=== PATIENT | female | born 1975 | race Caucasian/White ===

== ENCOUNTER 2023-01-01 23:13 | Emergency (ER) | payer MEDICAID, SELFPAY ==
[2023-01-01 23:14] VITALS: BP 133/95; PULSE 102; RESP 18; TEMP 36.9; O2SAT 99; BMI 22.1
--- NOTE | 2023-01-01 23:34 | EKG12_ITS ---
Test Reason : DYSRHYTHMIA Blood Pressure : / mmHG Vent. Rate : 088 BPM Atrial Rate : 088 BPM P-R Int : 170 ms QRS Dur : 072 ms QT Int : 362 ms P-R-T Axes : 056 058 064 degrees QTc Int : 438 ms Normal sinus rhythm Normal ECG No previous ECGs available Confirmed by ORLANDO BRANTLEY, RAMOS ([id number]), assistant production editor MARY MCMULLEN ([id number]) on 01/05/2023 8:58:02 AM Referred By: LAUREL Confirmed By:RAMOS PERRY MD
--- NOTE | 2023-01-02 00:11 | ED.RN ---
Sound heard from patient room. Patient found on floor, laying on her back. No LOC. Patient assisted to feet and back into bed. Charge nurse and physician notified. Patient continued to be monitored.
--- NOTE | 2023-01-02 00:14 | ED.RN ---
Per Dr Espinal, patient denies SI and does not require a sitter.
[2023-01-02 00:26] LABS: Absolute Neutrophil Count 3.7 X10^3/uL (2.0-7.7); Basophil# 0.06 X10^3/uL; Basophil% 0.8 % (0-1); Eosinophil# 0.22 X10^3/uL; Eosinophils% 3.1 % (0-5); Hematocrit 38.7 % (37-47); Hemoglobin 12.7 g/dL (12.0-15.0); Lymphocyte % 32.2 % (19-41); Mean Corp Hgb Conc 32.8 g/dL (32-36); Mean Corpuscular Hgb 31.2 pg (27.0-32.0); Mean Corpuscular Volume 95.1 fL (81-99); Mean Platelet Vol. 8.9 fl (6.2-12.0); Monocyte# 0.76 X10^3/uL; Monocyte% 10.6 % (0-10); NRBC Flagged by Analyzer 0 % (0-5); Neutrophil % 51.9 % (47-70); POSITIVE MORPHOLOGY YES; Platelet Count 348 K/mm3 (150-450); RBC Distribution Width CV 14.4 % (11.6-14.6); RBC Distribution Width SD 49.8 fl (35.1-43.9); Red Blood Count 4.07 M/mm3 (4.2-5.4); White Blood Count 7.1 K/mm3 (4.4-11.0)
[2023-01-02 00:28] LABS: Differential Indicated SCAN CRITERIA MET
[2023-01-02 00:33] LABS: Internal QC Validated? YES +Cl - CLEAR BKGD; Pregnancy, Serum, hCG Quali. NEGATIVE Negative
[2023-01-02 00:39] LABS: AST(SGOT) 14 U/L (15-37); Alanine Aminotransfer ALT/SGPT 25 U/L (13-56); Albumin, Serum 3.7 g/dL (3.2-5.0); Alkaline Phosphatase 94 U/L (45-117); Anion Gap 5 (5-15); BUN 6 mg/dL (7-18); BUN/Creat Ratio 7.3 RATIO (10-20); Calcium,Total 8.7 mg/dL (8.5-10.1); Chloride 111 mmol/L (98-107); Creatinine, Serum 0.82 mg/dL (0.55-1.02); EST Glomerular Filtration Rate 79 mL/min (>60); Est Glom Filt Rate - Afr Amer 95 mL/min (>60); Estimated Creatinine Clearance 69.41 ml/min; Glucose 98 mg/dL (74-106); Potassium 3.8 mmol/L (3.5-5.1); Protein, Total 7.7 g/dL (6.4-8.2); Sodium Level 141 mmol/L (136-145)
[2023-01-02 00:47] LABS: Acetaminophen (Tylenol) Level < 2.0 ug/mL (10.0-30.0); Salicylate < 1.7 mg/dL (2.8-20.0)
[2023-01-02 00:55] LABS: Differential Comment SCANNED
[2023-01-02 01:01] LABS: Amphetamine Urine VISTA POSITIVE (<1000 ng/mL); Barbiturate Urine VISTA POSITIVE (< 200 ng/mL); Benzodiazepine Urine VISTA NEGATIVE (< 200 ng/mL); Cocaine Urine VISTA NEGATIVE (< 300 ng/mL); Ecstacy Urine VISTA POSITIVE (< 500 ng/mL); Methadone Urine VISTA NEGATIVE (< 300 ng/mL); PCP Urine VISTA NEGATIVE (< 25 ng/mL); THC Urine VISTA POSITIVE (< 50 ng/mL)
[2023-01-02 01:03] LABS: Vista UDS pH Range 5
--- NOTE | 2023-01-02 01:11 | ED.RN ---
PATIENTS BOYFRIEND APPROACHES NURSES STATION STATING SHE TRIED TO DIG THROUGH HER PURSE AND TAKE HER PILLS. BOYFRIEND HAS PILLS IN HAND AND GIVEN TO THIS RN. RN HAS BAGGED 4 PRESCRIPTIONS AND PLACED IN BELONGING BIGS. PATIENTS BELONGINGS OBTAIN BY THIS RN AND WILEY CELESTIN. PTS PANTS, SHIRT, PURSE AND JEWELRY OBTAINED (4 BRACELETS, 3 ANKLE BRACELETS, 3 SILVER RINGS, 2 NECKLACES). ONE SILVER RING GIVEN TO BOYFRIEND. ALL BELONGINGS IN BELONGING BAGS AND CONTAINERS.
[2023-01-02 02:53] VITALS: RESP 16
[2023-01-02] MEDS: Haloperidol Lactate 5 MG/ML Vial IM (04:47)
[2023-01-02] MEDS: Acetaminophen 500 MG Tablet 1000 MG PO (04:48)
--- NOTE | 2023-01-02 05:03 | ED.RN ---
PT EXHIBITING SHAKING ACTIVITY. STERNAL RUB PERFORMED, PT SAT UP, STOPPED SHAKING AND SAID OUCH. PT VERBALIZED SHE IS WITHDRAWING. ADVISED THAT SHE IS NOT ACTIVELY HAVING SEIZURES FROM WITHDRAW DUE TO ABILITY TO TALK AND STOP SHAKING.
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
[2023-01-02 10:51] VITALS: BP 128/77; PULSE 62; RESP 15; O2SAT 97
[2023-01-02 12:28] VITALS: BP 127/86; PULSE 79; RESP 16; TEMP 36.7; O2SAT 99
[2023-01-02 14:00] VITALS: RESP 16
[2023-01-02 15:00] VITALS: BP 140/89; PULSE 88; RESP 18; O2SAT 100
[2023-01-02] MEDS: Phenobarbital 32.4 MG Tablet PO (15:00)
--- NOTE | 2023-01-02 15:16 | ED.RN ---
1515: Discharge instructions and care plan reviewed with patient, she stated an understanding and had no further questions. Patient called Kenny to come pick her up. ETA 15 min. Patient requests to stay in room until he gets to ER.
== END 2023-01-02 15:48 | disposition home or self-care (01) ==
PROVIDERS: Emergency Provider Emergency Medicine; Visit Provider Emergency Medicine
DX: F32.A Depression, unspecified (principal); F10.129 Alcohol abuse with intoxication, unspecified; R45.851 Suicidal ideations
CPT/HCPCS: 80048; 80076; 80307; 80329; 82077; 84703; 85025; 87811; 93005; 96372; 99284; G0480

== ENCOUNTER 2023-03-01 17:44 | Emergency (ER) | payer MEDICAID, SELFPAY ==
[2023-03-01 17:45] VITALS: BP 163/120; PULSE 117; RESP 16; TEMP 36; O2SAT 97; BMI 23.0
--- NOTE | 2023-03-01 17:56 | EKG12_ITS ---
Test Reason : SEIZURE Blood Pressure : / mmHG Vent. Rate : 096 BPM Atrial Rate : 096 BPM P-R Int : 150 ms QRS Dur : 060 ms QT Int : 352 ms P-R-T Axes : 072 072 073 degrees QTc Int : 444 ms Normal sinus rhythm Septal infarct , age undetermined Abnormal ECG Confirmed by ORLANDO BRANTLEY, RAMOS ([id number]), metropolitan editor FREDDY RAMOS ([id number]) on 03/09/2023 11:32:28 AM Referred By: Confirmed By:RAMOS PERRY MD
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
[2023-03-01 20:00] VITALS: BMI 25.4
[2023-03-01 20:04] LABS: Absolute Lymphocyte Count 2.31 X10^3/uL (0.83-4.51); Absolute Neutrophil Count 5.3 X10^3/uL (2.0-7.7); Basophil# 0.04 X10^3/uL; Basophil% 0.5 % (0-1); Eosinophil# 0.16 X10^3/uL; Eosinophils% 1.8 % (0-5); Hematocrit 42.3 % (37-47); Hemoglobin 14.2 g/dL (12.0-15.0); Lymphocyte # 2.31 X10^3/ul (0.83-4.51); Lymphocyte % 26.6 % (19-41); Mean Corp Hgb Conc 33.6 g/dL (32-36); Mean Corpuscular Hgb 31.6 pg (27.0-32.0); Mean Platelet Vol. 8.9 fl (6.2-12.0); Monocyte# 0.91 X10^3/uL; Monocyte% 10.5 % (0-10); NRBC Flagged by Analyzer 0 % (0-5); Neutrophil # 5.25 X10^3/uL (2.7-7.7); Neutrophil % 60.3 % (47-70); Platelet Count 294 K/mm3 (150-450); RBC Distribution Width SD 44.6 fl (35.1-43.9); White Blood Count 8.7 K/mm3 (4.4-11.0)
[2023-03-01 20:27] VITALS: BP 164/84; PULSE 92; RESP 20; O2SAT 96
[2023-03-01 20:27] LABS: Anion Gap 6 (5-15); BUN 13 mg/dL (7-18); BUN/Creat Ratio 14.5 RATIO (10-20); Calcium,Total 9.7 mg/dL (8.5-10.1); Chloride 105 mmol/L (98-107); EST Glomerular Filtration Rate 71 mL/min (>60); Est Glom Filt Rate - Afr Amer 86 mL/min (>60); Estimated Creatinine Clearance 63.24 ml/min; Glucose 95 mg/dL (74-106); Potassium 3.6 mmol/L (3.5-5.1); Sodium Level 138 mmol/L (136-145); Troponin-I HS 4 pg/mL (3.0-54.0)
[2023-03-01] MEDS: Ondansetron 4 MG/2 ML Vial IV (20:45)
[2023-03-01] MEDS: Phenobarbital 32.4 MG Tablet 97.2 MG PO (20:45)
[2023-03-01] MEDS: LORazepam 2 MG/ML Syringe IV (20:45)
--- NOTE | 2023-03-01 21:00 | RAD_ITS ---
INDICATION: chest pain EXAMINATION/TECHNIQUE: X-RAY - XR Chest 1 View COMPARISON: None. FINDINGS: LINES/DEVICES: None. LUNGS: Paucity of lung markings within bilateral upper lungs compatible with COPD. No pulmonary edema or focal airspace consolidation. No sizable pleural effusion. No pneumothorax detected. MEDIASTINUM AND CARDIOVASCULAR STRUCTURES: Heart size within normal limits. Mediastinal contours unremarkable. BONES AND SOFT TISSUES: No acute findings. Left axillary metallic clips. RAD/Chest 1 View (Portable) IMPRESSION: COPD Electronically Signed: Kevan Dubois MD at 21:37 EDT ,
[2023-03-01 21:50] VITALS: BP 144/96; PULSE 88; RESP 20
--- NOTE | 2023-03-01 21:50 | ED.RN ---
PATIENTS ASKED IF SHE WOULD BE INTERESTED IN DETOX FOR ALCOHOL. PT STATES SHE DOES NOT FEEL LIKE THESE SYMPTOMS ARE FROM ALCOHOL. MORE ANXIETY. PT STATES SHE DOES NOT WANT DETOX AT THIS TIME. RN INFORMED HER IS SHE CHANGES HER MIND TO LET A NURSE KNOW OR SHE CAN RETURN TO ED FOR EVALUATION
--- NOTE | 2023-03-01 22:06 | CM.ED ---
Social Work SW introduced self and role to patient. Pt had requested to speak with social work to receive resources. Pt reports having no PCP, difficulty with alcohol, anxiety, is caring for her mother and is grieving. Pt reports going to [facility] but feels she needs more intensive mental health counseling. SW provided patient with [facility] info, IOP info, and [facility] list. SW explained resources and patient reports she plans to call to get in for counseling. [facility] TECHNICIAN, INDUSTRIAL METHODS CONSULTANT
== END 2023-03-01 23:19 | disposition home or self-care (01) ==
PROVIDERS: Emergency Provider Emergency Medicine; Visit Provider Emergency Medicine
DX: F10.239 Alcohol dependence with withdrawal, unspecified (principal); R07.9 Chest pain, unspecified; I10 Essential (primary) hypertension; F41.9 Anxiety disorder, unspecified
CPT/HCPCS: 71045; 80048; 84484; 85025; 93005; 96365; 96375; 99285; A4216; J2405; J3490

== ENCOUNTER 2023-03-05 16:45 | Inpatient (IN) | payer MEDICAID, SELFPAY ==
[2023-03-05 16:46] VITALS: BP 159/103; PULSE 106; RESP 20; TEMP 36.6; O2SAT 99; BMI 25.4
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
[2023-03-05 17:10] LABS: Absolute Lymphocyte Count 1.65 X10^3/uL (0.83-4.51); Absolute Neutrophil Count 4.9 X10^3/uL (2.0-7.7); Basophil# 0.07 X10^3/uL; Basophil% 0.9 % (0-1); Eosinophils% 1.3 % (0-5); Hematocrit 43.3 % (37-47); Hemoglobin 14.7 g/dL (12.0-15.0); Lymphocyte # 1.65 X10^3/ul (0.83-4.51); Lymphocyte % 22.1 % (19-41); Mean Corp Hgb Conc 33.9 g/dL (32-36); Mean Corpuscular Hgb 31.5 pg (27.0-32.0); Mean Corpuscular Volume 92.7 fL (81-99); Mean Platelet Vol. 9.1 fl (6.2-12.0); Monocyte# 0.74 X10^3/uL; Monocyte% 9.9 % (0-10); NRBC Flagged by Analyzer 0 % (0-5); Neutrophil % 65.7 % (47-70); Platelet Count 347 K/mm3 (150-450); RBC Distribution Width CV 12.8 % (11.6-14.6); Red Blood Count 4.67 M/mm3 (4.2-5.4); White Blood Count 7.5 K/mm3 (4.4-11.0)
[2023-03-05] MEDS: LORazepam 2 MG/ML Syringe 1 MG IV (17:21)
[2023-03-05 17:22] LABS: Internal QC Validated? YES +Cl - CLEAR BKGD; Pregnancy, Serum, hCG Quali. NEGATIVE Negative; Record Kit Lot#, Serum Preg. 667200
[2023-03-05 17:27] LABS: Alcohol, Blood (Medical)-Serum < 3.0 mg/dL
[2023-03-05 17:31] LABS: AST(SGOT) 22 U/L (15-37); Alanine Aminotransfer ALT/SGPT 28 U/L (13-56); Albumin, Serum 4.3 g/dL (3.2-5.0); Alkaline Phosphatase 109 U/L (45-117); Anion Gap 7 (5-15); BUN 5 mg/dL (7-18); BUN/Creat Ratio 5.7 RATIO (10-20); Calcium,Total 9.4 mg/dL (8.5-10.1); Chloride 106 mmol/L (98-107); Creatinine, Serum 0.88 mg/dL (0.55-1.02); EST Glomerular Filtration Rate 73 mL/min (>60); Est Glom Filt Rate - Afr Amer 88 mL/min (>60); Estimated Creatinine Clearance 64.67 ml/min; Globulin 4.3 g/dL (2.2-4.2); Glucose 101 mg/dL (74-106); Potassium 3.8 mmol/L (3.5-5.1); Protein, Total 8.6 g/dL (6.4-8.2); Sodium Level 138 mmol/L (136-145)
--- NOTE | 2023-03-05 17:32 | ED.RN ---
pt. gives permission to talk to pt. mother. mother very tearful, worried for daughter,
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
[2023-03-05 17:54] VITALS: BP 154/78; PULSE 104; RESP 14; O2SAT 98
[2023-03-05 17:58] VITALS: BP 158/98; PULSE 94; RESP 14; TEMP 36.4; O2SAT 98
[2023-03-05 18:07] VITALS: BP 164/74; PULSE 64; RESP 14; O2SAT 98
--- NOTE | 2023-03-05 18:13 | ED.RN ---
ramp contract signed.
[2023-03-05 18:22] VITALS: BMI 24.1
[2023-03-05 18:29] VITALS: BP 149/90; PULSE 89; RESP 17; TEMP 36.7; O2SAT 100
[2023-03-05] MEDS: Phenobarbital 32.4 MG Tablet PO ×2 (19:05→23:47)
[2023-03-05] MEDS: hydrOXYzine PAM 25 MG Capsule 50 MG PO (21:37)
[2023-03-05] MEDS: Acetaminophen 325 MG Tablet 650 MG PO (21:37)
[2023-03-05] MEDS: Dicyclomine 10 MG Capsule 20 MG PO (21:37)
[2023-03-05 23:43] VITALS: BP 127/88; PULSE 85; RESP 18; TEMP 36; O2SAT 96
[2023-03-05] MEDS: traZODone 100 MG Tablet PO (23:47)
[2023-03-05] MEDS: Gabapentin 300 MG Capsule PO (23:47)
[2023-03-06 00:23] LABS: Mucous, Urine 0 SEEN /hpf (<or=2+); Red Blood Cells-Urine 0 SEEN /hpf (0-5)
[2023-03-06 00:25] LABS: Color, Urine Yellow (Yellow); Glucose, Dipstick Normal (Normal); Ketone-Dipstick 15 mg/dl (Negative); Leukocyte Esterase-Dipstick 500 /ul (Negative); Nitrite-Dipstick Negative (Negative); Occult Blood-Urine 25 /ul (Negative); Protein-Dipstick 30 mg/dl (Negative); Specific Gravity, Urine 1.025 (1.002-1.030); Urine Clarity Cloudy (Clear); Urine Urobilinogen 1 mg/dl (Normal)
[2023-03-06 00:31] LABS: Urine Bilirubin Dipstick 1 mg/dL (Negative)
[2023-03-06 00:55] LABS: Amphetamine Urine VISTA POSITIVE (<1000 ng/mL); Barbiturate Urine VISTA POSITIVE (< 200 ng/mL); Benzodiazepine Urine VISTA POSITIVE (< 200 ng/mL); Cocaine Urine VISTA NEGATIVE (< 300 ng/mL); Ecstacy Urine VISTA NEGATIVE (< 500 ng/mL); Methadone Urine VISTA NEGATIVE (< 300 ng/mL); PCP Urine VISTA NEGATIVE (< 25 ng/mL); THC Urine VISTA POSITIVE (< 50 ng/mL); Vista UDS pH Range 4
[2023-03-06 01:01] LABS: Squamous Epithelial Cells - UA 10-25 SEEN /hpf (5-10); White Blood Cells 25-50 SEEN /hpf (0-5)
[2023-03-06 01:05] LABS: Bacteria 3+ /hpf (None Seen)
[2023-03-06] MEDS: Phenobarbital 32.4 MG Tablet PO ×6 (03:37→21:51)
[2023-03-06] MEDS: hydrOXYzine PAM 25 MG Capsule 50 MG PO ×2 (03:37→21:51)
[2023-03-06 03:39] VITALS: BP 108/73; PULSE 69; RESP 18; TEMP 36.1; O2SAT 96
[2023-03-06] MEDS: Folic Acid 1 MG Tablet PO (08:35)
[2023-03-06] MEDS: Thiamine Hydrochloride 100 MG Tablet PO (08:35)
[2023-03-06] MEDS: Smz/Tmp Ds Tablet 1 TABLET PO (08:35)
[2023-03-06] MEDS: Ensure Plus High Protein 120 ML LIQUID PO ×2 (08:39→14:38)
[2023-03-06 08:40] VITALS: BP 100/61; PULSE 69; RESP 16; TEMP 36.6; O2SAT 98
--- NOTE | 2023-03-06 08:52 | PCM.PN.HOSP ---
Subjective Subjective Resting, no issues overnight. CIWA score for Objective Data Objective Data Vital Signs: Vital Signs Temp Pulse Resp BP Pulse Ox O2 Del Method 97.9 F 69 16 100/61 98 Room Air 03/06/23 08:40 03/06/23 08:40 03/06/23 08:40 03/06/23 08:40 03/06/23 08:40 03/06/23 08:40 Oxygen Delivery Method Room Air Weight: 136 lb 7.458 oz Body Mass Index (BMI) 24.1 Lab / Micro Data 03/05/23 16:53 03/05/23 16:53 Labs: Laboratory Results - last 24 hr 03/05/23 16:53: WBC 7.5, RBC 4.67, Hgb 14.7, Hct 43.3, MCV 92.7, MCH 31.5, MCHC 33.9, RDW Std Deviation 44.0 H, RDW Coeff of Dayo 12.8, Plt Count 347, MPV 9.1, Immature Gran % (Auto) 0.100, Neut % (Auto) 65.7, Lymph % (Auto) 22.1, [place] % (Auto) 9.9, Eos % (Auto) 1.3, Baso % (Auto) 0.9, Absolute Neuts (auto) 4.9, Absolute Lymphs (auto) 1.65, Nucleated RBC % 0, Sodium 138, Potassium 3.8, Chloride 106, Carbon Dioxide 25.0, Anion Gap 7, BUN 5 L, Creatinine 0.88, Estim Creat Clear Calc 64.67, Est GFR (MDRD) Af Amer 88, Est GFR (MDRD) Non-Af 73, BUN/Creatinine Ratio 5.7 L, Glucose 101, Calcium 9.4, Total Bilirubin 0.60, AST 22, ALT 28, Alkaline Phosphatase 109, Total Protein 8.6 H, Albumin 4.3, Globulin 4.3 H, Albumin/Globulin Ratio 1.0, Serum , Qual NEGATIVE, Ethyl Alcohol < 3.0 03/05/23 23:50: Urine Color Yellow, Urine Clarity Cloudy, Urine pH 5.0, Ur Specific [place] 1.025, Urine Protein 30 H, Urine Glucose (UA) Normal, Urine Ketones 15 H, Urine Occult Blood 25 H, Urine Nitrite Negative, Urine Bilirubin 1 H, Urine Urobilinogen 1 H, Ur Leukocyte Esterase 500 H, Urine RBC 0 SEEN, Urine WBC 25-50 SEEN, Ur Squamous Epith Cells 10-25 SEEN, Urine Bacteria 3+, Urine Mucus 0 SEEN, Urine Opiates Screen NEGATIVE, Urine Methadone Screen NEGATIVE, Ur Barbiturates Screen POSITIVE H, Ur Phencyclidine Scrn NEGATIVE, Ur Amphetamines Screen POSITIVE H, MDMA (Ecstasy) Screen NEGATIVE, U Benzodiazepines Scrn POSITIVE H, Urine Cocaine Screen NEGATIVE, U Cannabinoids Screen POSITIVE H, Ur Drug Screen Comment Physical Exam Narrative General: Alert, Oriented x3, Cooperative, No apparent distress HEENT: Atraumatic, PERRLA, EOMI, Normocephalic Oral: Moist Mucosa Neck: Supple, No JVD Lungs: Clear to auscultation, Normal air movement, No rhonchi, No wheeze, No rales Cardiovascular: Regular rate, Regular Rhythm, Normal S1, Normal S2, No murmurs Abdomen: Soft, Non Tender, Non-Distended, No Hepato-splenomegaly Extremities: No edema, Capillary Refill Less than 3 Seconds Skin: No rashes, No breakdown Musculoskeletal: No Tenderness to Palpation of Joints or Extremities Neurological: Cranial nerves II-XII grossly intact, Motor Exam 5/5 strength throughout, Sensory exam intact to light touch and pain Psych/Mental Status: Normal Affect, Appropriate Assessment & Plan Assessment/Plan (1) Anxiety: (2) Alcohol withdrawal: PLAN: Plan 1. Acute alcohol withdrawal with seizure/anxiety/depression ? Continue with the alcohol withdrawal protocol including phenobarb taper ? She had to be given Ativan in the ER for seizure, continue with seizure precautions we will continue to monitor ? We will have her follow-up with [facility] as an outpatient for behavioral and mental health ? Urine drug screen positive for barbiturates, amphetamines, benzos, cannabis. She is on clonazepam as well as Wellbutrin at home DVT: Ambulation Charges/Coding Visit Charges Inpatient E&M: 76732 Subs Hosp L2
[2023-03-06] MEDS: Loperamide 2 MG Capsule PO (11:52)
--- NOTE | 2023-03-06 12:15 | CASEMGMT ---
Social Work PCU Spoke with Dr. Hicks and patient is here for detox. Provider would like [facility] - Addiction therapist to follow. Called Leann Addiction Therapist at [facility] to notify of referral. Leann will see patient tomorrow morning 03.07.23 for assessment/updates regarding substance use, detox, and aftercare needs. PLAN: [facility]. -ROGERIO Rm
[2023-03-06 14:00] VITALS: BP 123/74; PULSE 73; RESP 16; TEMP 36.6; O2SAT 98
--- NOTE | 2023-03-06 15:23 | CHAPLAIN ---
Type of Pastoral Visit _x__ Initial Visit ___ Follow-up Visit ___ On-call Visit ___ General Patient Visit ___ Spiritual Assessment ___ Family Conference ___ Bereavement ___ Rapid Response ___ Code Blue ___ Other (describe below) Pastoral Care Referral From _x__ Patient ___ Family ___ Nurse ___ Physician ___ Rehabilitation Counsellor ___ Head Of Sales Promotion ___ Other (describe below) Sacrament/Intervention _x__ Active listening ___ Anointing ___ Buddhist ___ Bereavement ___ Communion ___ Joseline exploration ___ ___ Life review _x__ Prayer ___ Reconciliation ___ Sacrament of Sick ___ Supportive presence ___ Wedding ___ Other (describe below) Pastoral Comments patient is resting and opens her eyes when this library information technician entered the room; pt acknowledges need for support but states that the meds are making her very sleepy; pt says, can you say a prayer today and come back to talk tomorrow?; agreement to do as requested
--- NOTE | 2023-03-06 18:33 | NURSING ---
PT MOM, VALERIE GARCIA, UPDATED ON PT STATUS PER PT OK. PT MOM REQUESTING TO SPEAK WITH ALIYA, ADDICTION THERAPIST ABOUT PT'S OPTIONS POST MEDICAL DETOX. PT MOM REQUESTING THAT PT GO TO 60 DAY TREATMENT. PT MOM STATES SHE'S AFRAID OF PT WHEN SHE DRINKS AND MOM CANNOT ALLOW PT BACK HOME. MOM- [phone]
[2023-03-06] MEDS: traZODone 100 MG Tablet PO (21:51)
[2023-03-06 22:03] VITALS: BP 98/62; PULSE 69; RESP 16; TEMP 36.6; O2SAT 100
[2023-03-07] MEDS: hydrOXYzine PAM 25 MG Capsule 50 MG PO ×2 (03:52→23:24)
[2023-03-07] MEDS: Phenobarbital 32.4 MG Tablet PO ×6 (03:52→23:24)
[2023-03-07 03:54] VITALS: BP 96/60; PULSE 78; RESP 16; TEMP 36.7; O2SAT 100
[2023-03-07 08:27] VITALS: BP 105/70; PULSE 75; RESP 16; TEMP 36.6; O2SAT 99
[2023-03-07] MEDS: Thiamine Hydrochloride 100 MG Tablet PO (08:28)
[2023-03-07] MEDS: Folic Acid 1 MG Tablet PO (08:28)
[2023-03-07] MEDS: Smz/Tmp Ds Tablet 1 TABLET PO (08:28)
--- NOTE | 2023-03-07 08:52 | PCM.PN.HOSP ---
Subjective Subjective Doing well, no issues overnight. CIWA score 1 today Objective Data Objective Data Vital Signs: Vital Signs Temp Pulse Resp BP Pulse Ox O2 Del Method 97.9 F 75 16 105/70 99 Room Air 03/07/23 08:27 03/07/23 08:27 03/07/23 08:27 03/07/23 08:27 03/07/23 08:27 03/07/23 08:27 Oxygen Delivery Method Room Air Weight: 136 lb 7.458 oz Body Mass Index (BMI) 24.1 Lab / Micro Data 03/05/23 16:53 03/05/23 16:53 Physical Exam Narrative General: Alert, Oriented x3, Cooperative, No apparent distress HEENT: Atraumatic, PERRLA, EOMI, Normocephalic Oral: Moist Mucosa Neck: Supple, No JVD Lungs: Clear to auscultation, Normal air movement, No rhonchi, No wheeze, No rales Cardiovascular: Regular rate, Regular Rhythm, Normal S1, Normal S2, No murmurs Abdomen: Soft, Non Tender, Non-Distended, No Hepato-splenomegaly Extremities: No edema, Capillary Refill Less than 3 Seconds Skin: No rashes, No breakdown Musculoskeletal: No Tenderness to Palpation of Joints or Extremities Neurological: Cranial nerves II-XII grossly intact, Motor Exam 5/5 strength throughout, Sensory exam intact to light touch and pain Psych/Mental Status: Normal Affect, Appropriate Assessment & Plan Assessment/Plan (1) Anxiety: (2) Alcohol withdrawal: PLAN: Plan 1. Acute alcohol withdrawal with seizure/anxiety/depression ? Continue with the alcohol withdrawal protocol including phenobarb taper ? She had to be given Ativan in the ER for seizure, continue with seizure precautions we will continue to monitor ? We will have her follow-up with [facility] as an outpatient for behavioral and mental health ? Urine drug screen positive for barbiturates, amphetamines, benzos, cannabis. She is on clonazepam as well as Wellbutrin at home DVT: Ambulation Charges/Coding Visit Charges Inpatient E&M: 06622 Subs Hosp L2
--- NOTE | 2023-03-07 11:39 | ADDICTION ---
Addendum entered by Leann Duque 03/09/23 14:20: Pt declined referral. Reported that she was there previously and they did not give her what she needed. A referral was placed for [facility], Pt refused to speak with the membership coordinator. A referral was placed for [facility] in [facility]. Pt reported that it was in the [facility]. Pt reports that she will just follow up with [facility] at [facility]. Original Note: This scenario writer met with PT to conduct ASAM, MSE, AUDIT, DUDIT assessments and to plan for d/c. PT A+Ox4 and participated actively. All assessments completed and placed in PT's chart. PT plans to f/u with in [facility] for follow-up in patient treatment services on Sunday if approved. [facility] will transport to treatment.
[2023-03-07 14:48] VITALS: BP 134/80; PULSE 69; RESP 16; TEMP 36.8; O2SAT 99
[2023-03-07 23:08] VITALS: BP 120/71; PULSE 72; RESP 18; TEMP 36.6; O2SAT 98
[2023-03-07] MEDS: 0.9% Saline Lock 10 ML Syringe IV ×2 (23:21→23:37)
[2023-03-07] MEDS: traZODone 100 MG Tablet PO (23:24)
--- NOTE | 2023-03-07 23:29 | NURSING ---
Nina from [facility] called and wanted us to community to the patient that the facility was 3 [place] 15 min away from [place]. We are to call her back and let he know if the patient still wants to come to the facility before they set up transportation. Karoline JAMA checked with the patient and she wants to talk with Leann from [facility] tomorrow. We are to call Nina at to let her know the patient decision.
[2023-03-08 03:27] VITALS: BP 102/63; PULSE 75; RESP 18; TEMP 36.6; O2SAT 95
[2023-03-08] MEDS: Phenobarbital 32.4 MG Tablet PO ×4 (03:31→21:17)
[2023-03-08 09:35] VITALS: BP 102/59; PULSE 82; RESP 16; TEMP 36.6; O2SAT 98
[2023-03-08] MEDS: Smz/Tmp Ds Tablet 1 TABLET PO (09:38)
[2023-03-08] MEDS: Folic Acid 1 MG Tablet PO (09:38)
[2023-03-08] MEDS: Thiamine Hydrochloride 100 MG Tablet PO (09:38)
--- NOTE | 2023-03-08 11:19 | PCM.PN.HOSP ---
Subjective Subjective Doing well, no issues overnight. CIWA score of 1 Objective Data Objective Data Vital Signs: Vital Signs Temp Pulse Resp BP Pulse Ox O2 Del Method 97.9 F 82 16 102/59 L 98 Room Air 03/08/23 09:35 03/08/23 09:35 03/08/23 09:35 03/08/23 09:35 03/08/23 09:35 03/08/23 10:00 Oxygen Delivery Method Room Air Weight: 136 lb 7.458 oz Body Mass Index (BMI) 24.1 Intake & Output: Intake and Output for Last 24 Hours 03/07/23 03/08/23 03/09/23 03:59 03:59 03:59 Intake Total 500 / 500 300 / 300 Balance 500 / 500 300 / 300 Lab / Micro Data 03/05/23 16:53 03/05/23 16:53 Physical Exam Narrative General: Alert, Oriented x3, Cooperative, No apparent distress HEENT: Atraumatic, PERRLA, EOMI, Normocephalic Oral: Moist Mucosa Neck: Supple, No JVD Lungs: Clear to auscultation, Normal air movement, No rhonchi, No wheeze, No rales Cardiovascular: Regular rate, Regular Rhythm, Normal S1, Normal S2, No murmurs Abdomen: Soft, Non Tender, Non-Distended, No Hepato-splenomegaly Extremities: No edema, Capillary Refill Less than 3 Seconds Skin: No rashes, No breakdown Musculoskeletal: No Tenderness to Palpation of Joints or Extremities Neurological: Cranial nerves II-XII grossly intact, Motor Exam 5/5 strength throughout, Sensory exam intact to light touch and pain Psych/Mental Status: Normal Affect, Appropriate Assessment & Plan Assessment/Plan (1) Anxiety: (2) Alcohol withdrawal: PLAN: Plan 1. Acute alcohol withdrawal with seizure/anxiety/depression ? Continue with the alcohol withdrawal protocol including phenobarb taper ? She had to be given Ativan in the ER for seizure, continue with seizure precautions we will continue to monitor ? We will have her follow-up with [facility] as an outpatient for behavioral and mental health, she is refusing inpatient placement so will be discharged in the morning ? Urine drug screen positive for barbiturates, amphetamines, benzos, cannabis. She is on clonazepam as well as Wellbutrin at home DVT: Ambulation
--- NOTE | 2023-03-08 12:05 | CHAPLAIN ---
Type of Pastoral Visit ___ Initial Visit ___ Follow-up Visit ___ On-call Visit ___ General Patient Visit ___ Spiritual Assessment ___ Family Conference ___ Bereavement ___ Rapid Response ___ Code Blue ___ Other (describe below) Pastoral Care Referral From ___ Patient ___ Family ___ Nurse ___ Physician ___ Patrol Deputy Sheriff ___ Cardiac Rehab Nurse ___ Other (describe below) Sacrament/Intervention ___ Active listening ___ Anointing ___ Adventist ___ Bereavement ___ Communion ___ Joseline exploration ___ ___ Life review ___ Prayer ___ Reconciliation ___ Sacrament of Sick ___ Supportive presence ___ Wedding ___ Other (describe below) Pastoral Comments second day in a row that patient has been soundly sleeping when visit is attempted
[2023-03-08 15:00] VITALS: BP 110/64; PULSE 88; RESP 16; TEMP 36.6; O2SAT 99
[2023-03-08] MEDS: traZODone 100 MG Tablet PO (21:17)
[2023-03-08] MEDS: Dicyclomine 10 MG Capsule 20 MG PO (21:18)
[2023-03-08] MEDS: Acetaminophen 325 MG Tablet 650 MG PO (21:18)
[2023-03-08 22:00] VITALS: BP 110/71; PULSE 71; RESP 16; TEMP 36.6; O2SAT 99
[2023-03-09 02:20] VITALS: BP 112/70; PULSE 70; RESP 16; TEMP 36.3; O2SAT 100
[2023-03-09] MEDS: Phenobarbital 32.4 MG Tablet PO ×2 (03:48→08:06)
[2023-03-09 04:00] VITALS: BP 108/56; PULSE 60; RESP 16; TEMP 36.4; O2SAT 98
[2023-03-09] MEDS: Thiamine Hydrochloride 100 MG Tablet PO (08:06)
[2023-03-09] MEDS: Folic Acid 1 MG Tablet PO (08:06)
[2023-03-09 09:20] VITALS: BP 107/54; PULSE 71; RESP 18; TEMP 37.3; O2SAT 98
--- NOTE | 2023-03-09 11:47 | DCINST_ITS ---
Discharge Instructions Diet Discharge Diet: Low fat / Low cholesterol Activity Discharge Activity: Return to Normal Activity Weight Bearing Status: Weight bearing as tolerated Dressing / Incision Call your doctor if you observe: Fever of 101 or Higher, Shortness of breath, Dizziness, Swelling in the ankles, Chest pain and Increased palpitations (irregular heartbeat) Follow Up Care Test Results: Test results from this visit will be discussed in further detail at your follow- up appointment, if applicable. Discharge Plan Admission Admit Date/Time: 03/05/23 17:54 Primary Reason for Your Visit: acute alcohol withdrawal Attending Provider: Jami Trevino Primary Care Provider: Melisa Hernadez,No Primary Consulting Providers: Jami Trevino; Wayne Hicks Instructions Patient Instructions: Alcohol Withdrawal: What to Expect, ED Withdrawal Alcohol Discharge Orders/Prescriptions Prescriptions: Continued bupropion HCl 300 mg tablet extended release 24 hr 300 mg PO DAILY Patient Comments: TAKE 1 TABLET BY MOUTH EVERY MORNING FOR 30 DAYS clonazepam 1 mg tablet 1 mg PO BID PRN hydroxyzine HCl 25 mg tablet 25 mg PO TID PRN (Reason: anxiety) Qty: 21 0RF ondansetron 4 mg tablet,disintegrating 4 mg PO Q8H PRN (Reason: nausea and vomiting) 3 Days Qty: 9 0RF Referrals / Follow Up: Care Physician,No Primary [Primary Care Provider] - Disposition Disposition (needs filled in before D/C Order can be placed): Home, Self Care
--- NOTE | 2023-03-09 11:47 | PCM.DC.SUM ---
Providers Date of Admission: 03/05/23 Date of Discharge: 03/09/23 Primary Care Physician: No Primary Care Phys Reason For Visit: ACUTE ALCOHOL WITHDRAWL WITH SEIZURE Diagnosis Discharge Diagnosis (1) Anxiety: Status: Acute Code(s): F41.9 - Anxiety disorder, unspecified (2) Alcohol withdrawal: Status: Acute Code(s): F10.939 - Alcohol use, unspecified with withdrawal, unspecified Plan #Acute alcohol withdrawal with seizure Admit to PCU on account of seizure Serum alcohol level is less than 3. Urine tox is pending. Did have 1 witnessed seizure. Has drank a case of beer over the past few days and at least a bottle of wine. Started on alcohol withdrawal protocol with phenobarbital. Ativan as needed for seizure. Seizure precautions. Thiamine, folic acid and Multivite's. Adjunctive meds for symptomatic relief. #Anxiety and depression: Currently not on any meds. Follow-up with psychiatrist on outpatient basis. #DVT prophylaxis: Low risk. Encourage ambulation. Medications at Discharge Home Medications hydroxyzine HCl 25 mg tablet 25 mg PO TID PRN anxiety #21 tabs 03/01/23 ondansetron 4 mg disintegrating tablet 4 mg PO Q8H PRN nausea and vomiting 3 days #9 tabs 03/01/23 bupropion HCl 300 mg 24 hr tablet, extended release 300 mg PO DAILY depression 03/05/23 clonazepam 1 mg tablet 1 mg PO BID PRN anxiety and chronic insomnia 03/05/23 Hospital Course Operations None Procedures None Summary of Care Provided Minutes Spent on Discharge: 45 Hospital Course: KELI HEADLEY, is a 47 F with a PMH as outlined including alcohol use disorder, depression and anxiety who presents via the ED on 03/05/2023 with a complaint of seizure which she attributes to acute alcohol withdrawal. SHe was seen a few days ago for acute alcohol withdrawal as well as chest pain, and and requested for intensive outpatient treatment. However upon leaving the ED then, she went home and started binge drinking again. She does drink over a case of beer and that. And is also drank at least a bottle of wine. Her last drink was 8 AM on the morning of admission. She had a seizure which she attributed to alcohol withdrawal. Seizure was unwitnessed; Patient also stated that she had had additional stresses in her life because one of her best friends had and she was going through a divorce as well, and this had made her even more depressed and anxious, causing her to drink more alcohol. She did go through a detox program in [place] some months ago, but says she started drinking soon after that. Vitals in the ED were blood pressure 159/103, pulse rate of 106 and respiratory rate of 20. Temperature was 97.8 Fahrenheit and she was saturating at 99% on room air. CBC was unremarkable and BMP was also largely unremarkable. Serum alcohol level was less than 3. Urine tox was pending. She was admitted to be managed for acute alcohol withdrawal with associated seizure. She was started on alcohol withdrawal protocol with phenobarbital. She tolerated a 4 day detox process. She was initially willing to go to inpatient detox facility, but subsequently changed her mind and chose to go home. She was discharged home on 03/09/2023. She is to follow up with her PCP within 1-2 weeks. Patient seen and examined prior to discharge. She had no active complaints and had an uneventful night. Review of systems was otherwise negative. Labs and vitals reviewed. Home meds reviewed and reconciled. Physical Exam Const alert and oriented x3 Constitutional Narrative: very anxious General Appearance: cooperative and comfortable HEENT normocephalic, head/scalp atraumatic and hearing grossly normal bilaterally Mouth: oral and palatal mucosa normal Eyes PERRL, EOMs intact bilaterally and conjunctivae normal Neck no lymphadenopathy, supple and no JVD Lymph Lymphatic: no lymphadenopathy noted and no lymphedema noted Resp normal respiratory effort, normal air movement and clear to auscultation bilaterally Cardio regular rate, regular rhythm, S1 normal heart sound, S2 normal heart sound and no murmurs GI normal to inspection, nondistended, normoactive bowel sounds, soft to palpation, non-tender and non-distended Extremity normal to inspection, full ROM, normal capillary refill, no clubbing, cyanosis or edema and no calf tenderness General Extremity: no tenderness to palpation of joints or extremities Skin no rashes or lesions noted General Skin Exam: no breakdown Neuro oriented x3, CN's II-XII intact bilaterally, no focal motor deficits and no sensory deficits noted Sensorium / Orientation: awake and alert Motor Exam: strength 5/5 throughout and general weakness Psych thought process normal, cooperative and affect normal Appearance: appropriate Weight / BMI Weight Weight: 136 lb 7.458 oz Body Mass Index (BMI) 24.1 ABG / Lab / Microbiology Data 03/05/23 16:53 03/05/23 16:53 D/C Instructions Discharge Diet: Low fat / Low cholesterol Discharge Activity: Return to Normal Activity Weight Bearing Status: Weight bearing as tolerated Call your doctor if you observe: Fever of 101 or Higher, Shortness of breath, Dizziness, Swelling in the ankles, Chest pain and Increased palpitations (irregular heartbeat) Meaningful Use Info Meaningful Use Diagnoses (Choose all that apply): None applicable Discharge Plan Admission Admit Date/Time: 03/05/23 17:54 Primary Reason for Your Visit: acute alcohol withdrawal Attending Provider: Jami Trevino Primary Care Provider: Care Physician,No Primary Consulting Providers: Jami Trevino; Wayne Hicks Instructions Patient Instructions: Alcohol Withdrawal: What to Expect, ED Withdrawal Alcohol Discharge Orders/Prescriptions Prescriptions: Continued bupropion HCl 300 mg tablet extended release 24 hr 300 mg PO DAILY Patient Comments: TAKE 1 TABLET BY MOUTH EVERY MORNING FOR 30 DAYS clonazepam 1 mg tablet 1 mg PO BID PRN hydroxyzine HCl 25 mg tablet 25 mg PO TID PRN (Reason: anxiety) Qty: 21 0RF ondansetron 4 mg tablet,disintegrating 4 mg PO Q8H PRN (Reason: nausea and vomiting) 3 Days Qty: 9 0RF Referrals / Follow Up: Care Physician,No Primary [Primary Care Provider] - Disposition Disposition (needs filled in before D/C Order can be placed): Home, Self Care Charges/Coding Visit Charges Inpatient E&M: 52289 Disch Hosp >30min
[2023-03-09 14:00] VITALS: BP 137/62; PULSE 69; RESP 18; TEMP 36.4; O2SAT 98
--- NOTE | 2023-03-09 15:50 | CHAPLAIN ---
Type of Pastoral Visit ___ Initial Visit _x__ Follow-up Visit ___ On-call Visit ___ General Patient Visit ___ Spiritual Assessment ___ Family Conference ___ Bereavement ___ Rapid Response ___ Code Blue ___ Other (describe below) Pastoral Care Referral From _x__ Patient ___ Family ___ Nurse ___ Physician ___ Law Instructor ___ Batch Tank Controller ___ Other (describe below) Sacrament/Intervention ___ Active listening ___ Anointing ___ Yarsanism ___ Bereavement ___ Communion ___ Joseline exploration ___ ___ Life review _x__ Prayer ___ Reconciliation ___ Sacrament of Sick _x__ Supportive presence ___ Wedding ___ Other (describe below) Pastoral Comments daily attempts made to visit with this patient; today the patient was quietly resting but responded to call of her name by this biomedical engineering technologist; reintroduced self and role to patient; pt states that she has had such a difficult time being awake and alert while in the hospital; pt does state that prayer would be appreciated; words of encouragement and hope are shared with the pt along with affirmation of support for her improved health; pt expresses thanks for the support and presence
== END 2023-03-09 14:58 | disposition home or self-care (01) | DRG 775 ==
LOC: ED 17:40 → PCU 18:12
PROVIDERS: Admitting Provider Student in an Organized Health Care Education/Training Program; Emergency Provider Emergency Medicine; Visit Provider Student in an Organized Health Care Education/Training Program
DX: F10.239 Alcohol dependence with withdrawal, unspecified (principal); F32.A Depression, unspecified; G40.89 Other seizures; F41.9 Anxiety disorder, unspecified; Y90.0 Blood alcohol level of less than 20 mg/100 ml; Z63.5 Disruption of family by separation and divorce
CPT/HCPCS: 80053; 80307; 81001; 82077; 84703; 85025; 97802; 99285; A4216

== ENCOUNTER 2023-04-20 04:03 | Emergency (ER) | payer MEDICAID, SELFPAY ==
[2023-04-20 04:04] VITALS: BP 142/62; PULSE 117; RESP 16; TEMP 36.6; O2SAT 98; BMI 26.3
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
[2023-04-20] MEDS: 0.9% Normal Saline (1000mL) 1,000 ML 1000 ML IV (04:22)
[2023-04-20] MEDS: Ondansetron 4 MG/2 ML Vial IV (04:22)
[2023-04-20] MEDS: LORazepam 2 MG/ML Syringe 0.5 MG IV (04:22)
[2023-04-20 04:33] LABS: Absolute Lymphocyte Count 2.04 X10^3/uL (0.83-4.51); Absolute Neutrophil Count 6.2 X10^3/uL (2.0-7.7); Basophil# 0.08 X10^3/uL; Basophil% 0.9 % (0-1); Eosinophil# 0.09 X10^3/uL; Hematocrit 38.6 % (37-47); Hemoglobin 13.2 g/dL (12.0-15.0); Lymphocyte # 2.04 X10^3/ul (0.83-4.51); Mean Corp Hgb Conc 34.2 g/dL (32-36); Mean Corpuscular Volume 90.6 fL (81-99); Mean Platelet Vol. 8.1 fl (6.2-12.0); Monocyte# 0.87 X10^3/uL; Monocyte% 9.4 % (0-10); NRBC Flagged by Analyzer 0 % (0-5); Neutrophil # 6.15 X10^3/uL (2.7-7.7); Neutrophil % 66.4 % (47-70); Platelet Count 347 K/mm3 (150-450); RBC Distribution Width CV 12.7 % (11.6-14.6); RBC Distribution Width SD 41.7 fl (35.1-43.9); Red Blood Count 4.26 M/mm3 (4.2-5.4); White Blood Count 9.3 K/mm3 (4.4-11.0)
[2023-04-20 04:36] LABS: Bedside Glucose 158 mg/dL (74-106)
[2023-04-20 04:53] LABS: ALB/GLOB Ratio 0.8 RATIO (0.9-2.4); AST(SGOT) 40 U/L (15-37); Alanine Aminotransfer ALT/SGPT 55 U/L (13-56); Albumin, Serum 3.4 g/dL (3.2-5.0); Alkaline Phosphatase 121 U/L (45-117); Anion Gap 7 (5-15); BUN 10 mg/dL (7-18); BUN/Creat Ratio 10.6 RATIO (10-20); Chloride 106 mmol/L (98-107); Creatinine, Serum 0.94 mg/dL (0.55-1.02); EST Glomerular Filtration Rate 67 mL/min (>60); Est Glom Filt Rate - Afr Amer 81 mL/min (>60); Estimated Creatinine Clearance 60.54 ml/min; Globulin 4.2 g/dL (2.2-4.2); Glucose 174 mg/dL (74-106); Lipase 53 U/L (13-75); Potassium 3.4 mmol/L (3.5-5.1); Protein, Total 7.6 g/dL (6.4-8.2); Sodium Level 139 mmol/L (136-145)
[2023-04-20] MEDS: Potassium Chloride 10mEq/100mL 10 MEQ/100 ML IV.SOLN. 100 MEQ IV BOLUS (05:37)
[2023-04-20 05:39] VITALS: BP 132/80; PULSE 110; RESP 16; O2SAT 96
[2023-04-20 06:28] VITALS: BP 140/71; PULSE 116; RESP 16; O2SAT 99
== END 2023-04-20 06:42 | disposition home or self-care (01) ==
PROVIDERS: Emergency Provider Emergency Medicine; Visit Provider Emergency Medicine
DX: E87.6 Hypokalemia (principal); F41.9 Anxiety disorder, unspecified; R11.10 Vomiting, unspecified
CPT/HCPCS: 80053; 82962; 83690; 85025; 96365; 96366; 96375; 99285; J7030; A4216; J2405

== ENCOUNTER 2023-05-30 08:31 | Inpatient (IN) | payer MEDICAID, SELFPAY ==
[2023-05-30] VITALS (9 sets, daily range): BP systolic 131–197; BP diastolic 92–122; PULSE 72–121; RESP 13–18; TEMP 36–37.2; O2SAT 96–100; BMI 25.8; BMI 24.2
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
[2023-05-30] MEDS: 0.9% Normal Saline (1000mL) 1,000 ML 1000 ML IV (08:57)
[2023-05-30] MEDS: Ondansetron 4 MG/2 ML Vial IV (08:57)
[2023-05-30 09:05] LABS: Absolute Lymphocyte Count 3.77 X10^3/uL (0.83-4.51); Absolute Neutrophil Count 5.2 X10^3/uL (2.0-7.7); Basophil# 0.09 X10^3/uL; Basophil% 0.9 % (0-1); Eosinophil# 0.02 X10^3/uL; Eosinophils% 0.2 % (0-5); Hematocrit 47.8 % (37-47); Hemoglobin 15.5 g/dL (12.0-15.0); Lymphocyte # 3.77 X10^3/ul (0.83-4.51); Lymphocyte % 39.1 % (19-41); Mean Corp Hgb Conc 32.4 g/dL (32-36); Mean Corpuscular Volume 95.6 fL (81-99); Mean Platelet Vol. 8.7 fl (6.2-12.0); Monocyte# 0.52 X10^3/uL; Monocyte% 5.4 % (0-10); NRBC Flagged by Analyzer 0 % (0-5); Neutrophil # 5.22 X10^3/uL (2.7-7.7); Neutrophil % 54.2 % (47-70); Platelet Count 447 K/mm3 (150-450); RBC Distribution Width SD 45.1 fl (35.1-43.9); White Blood Count 9.6 K/mm3 (4.4-11.0)
[2023-05-30 09:55] LABS: ALB/GLOB Ratio 0.9 RATIO (0.9-2.4); AST(SGOT) 42 U/L (15-37); Alanine Aminotransfer ALT/SGPT 64 U/L (13-56); Albumin, Serum 3.6 g/dL (3.2-5.0); Alkaline Phosphatase 113 U/L (45-117); Anion Gap 12 (5-15); BUN 10 mg/dL (7-18); Calcium,Total 7.7 mg/dL (8.5-10.1); Chloride 103 mmol/L (98-107); Creatinine, Serum 0.91 mg/dL (0.55-1.02); EST Glomerular Filtration Rate 70 mL/min (>60); Est Glom Filt Rate - Afr Amer 85 mL/min (>60); Estimated Creatinine Clearance 62.54 ml/min; Globulin 4.2 g/dL (2.2-4.2); Glucose 180 mg/dL (74-106); Lipase 42 U/L (13-75); Potassium 3.7 mmol/L (3.5-5.1); Protein, Total 7.8 g/dL (6.4-8.2); Sodium Level 139 mmol/L (136-145)
--- NOTE | 2023-05-30 10:19 | NURSING ---
DR HEART FOR DR LUQUE
--- NOTE | 2023-05-30 10:22 | NURSING ---
MED SURG HEART ETOH ABUSE, DETOX, INTOXICATION
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
[2023-05-30] MEDS: LORazepam 1 MG Tablet PO (12:11)
[2023-05-30] MEDS: Ondansetron 8 MG Tablet PO (12:11)
[2023-05-30] MEDS: Phenobarbital 32.4 MG Tablet PO ×4 (12:11→23:44)
[2023-05-30] MEDS: LORazepam 2 MG/ML Syringe 1 MG IV (14:48)
[2023-05-30] MEDS: 0.9% Saline Lock 10 ML Syringe IV ×2 (14:49→16:39)
[2023-05-30 16:31] LABS: Amphetamine Urine VISTA NEGATIVE (<1000 ng/mL); Barbiturate Urine VISTA NEGATIVE (< 200 ng/mL); Benzodiazepine Urine VISTA POSITIVE (< 200 ng/mL); Cocaine Urine VISTA NEGATIVE (< 300 ng/mL); Ecstacy Urine VISTA NEGATIVE (< 500 ng/mL); Methadone Urine VISTA NEGATIVE (< 300 ng/mL); PCP Urine VISTA NEGATIVE (< 25 ng/mL); THC Urine VISTA NEGATIVE (< 50 ng/mL); Vista UDS pH Range 7
[2023-05-30] MEDS: LORazepam 2 MG/ML Syringe IV ×2 (16:39→17:43)
[2023-05-30 16:43] LABS: Color, Urine Yellow (Yellow); Glucose, Dipstick Normal (Normal); Ketone-Dipstick 5 mg/dl (Negative); Leukocyte Esterase-Dipstick Negative /ul (Negative); Nitrite-Dipstick Negative (Negative); Occult Blood-Urine 10 /ul (Negative); Protein-Dipstick 15 mg/dl (Negative); Urine Bilirubin Dipstick Negative (Negative); Urine Clarity Sl. Cloudy (Clear); Urine Urobilinogen Normal (Normal)
[2023-05-30] MEDS: 0.9% Normal Saline (1000mL) 1,000 ML 100 ML IV (16:43)
[2023-05-30] MEDS: LORazepam 1 MG Tablet 2 MG PO ×3 (19:45→23:43)
[2023-05-30] MEDS: Dicyclomine 10 MG Capsule 20 MG PO (19:46)
[2023-05-30] MEDS: Acetaminophen 325 MG Tablet 650 MG PO (19:46)
[2023-05-30] MEDS: cloNIDine HCl 0.1 MG Tablet 0.05 MG PO (21:46)
[2023-05-30] MEDS: Ibuprofen 600 MG Tablet PO (23:44)
[2023-05-31 03:28] VITALS: BP 142/83; PULSE 84; RESP 18; TEMP 36.7; O2SAT 98
[2023-05-31] MEDS: Phenobarbital 32.4 MG Tablet PO ×6 (03:30→23:43)
[2023-05-31 06:12] LABS: ALB/GLOB Ratio 0.9 RATIO (0.9-2.4); AST(SGOT) 35 U/L (15-37); Alanine Aminotransfer ALT/SGPT 41 U/L (13-56); Albumin, Serum 3.1 g/dL (3.2-5.0); Alkaline Phosphatase 101 U/L (45-117); Anion Gap 9 (5-15); BUN 8 mg/dL (7-18); Calcium,Total 7.6 mg/dL (8.5-10.1); Chloride 103 mmol/L (98-107); EST Glomerular Filtration Rate 81 mL/min (>60); Est Glom Filt Rate - Afr Amer 98 mL/min (>60); Estimated Creatinine Clearance 71.14 ml/min; Globulin 3.4 g/dL (2.2-4.2); Glucose 95 mg/dL (74-106); Potassium 3.9 mmol/L (3.5-5.1); Protein, Total 6.5 g/dL (6.4-8.2); Sodium Level 136 mmol/L (136-145)
[2023-05-31 06:31] VITALS: BP 158/94; PULSE 83; RESP 18; TEMP 36.6; O2SAT 97
[2023-05-31] MEDS: Dicyclomine 10 MG Capsule 20 MG PO (06:37)
[2023-05-31] MEDS: cloNIDine HCl 0.1 MG Tablet 0.05 MG PO ×3 (06:38→21:16)
[2023-05-31 06:57] LABS: Absolute Lymphocyte Count 1.86 X10^3/uL (0.83-4.51); Absolute Neutrophil Count 4.5 X10^3/uL (2.0-7.7); Basophil# 0.07 X10^3/uL; Basophil% 0.9 % (0-1); Eosinophil# 0.12 X10^3/uL; Eosinophils% 1.6 % (0-5); Hematocrit 37.1 % (37-47); Lymphocyte # 1.86 X10^3/ul (0.83-4.51); Lymphocyte % 25.2 % (19-41); Mean Corpuscular Hgb 31.9 pg (27.0-32.0); Mean Corpuscular Volume 90.9 fL (81-99); Mean Platelet Vol. 8.6 fl (6.2-12.0); Monocyte# 0.82 X10^3/uL; Monocyte% 11.1 % (0-10); NRBC Flagged by Analyzer 0 % (0-5); Neutrophil # 4.49 X10^3/uL (2.7-7.7); Neutrophil % 61.1 % (47-70); Platelet Count 280 K/mm3 (150-450); RBC Distribution Width CV 12.7 % (11.6-14.6); RBC Distribution Width SD 41.2 fl (35.1-43.9); Red Blood Count 4.08 M/mm3 (4.2-5.4); White Blood Count 7.4 K/mm3 (4.4-11.0)
[2023-05-31] MEDS: Folic Acid 1 MG Tablet PO (08:40)
[2023-05-31] MEDS: Thiamine Hydrochloride 100 MG Tablet PO (08:40)
[2023-05-31] MEDS: Enoxaparin 40 MG/0.4 ML Syringe SC (08:40)
[2023-05-31] MEDS: hydrOXYzine PAM 25 MG Capsule 50 MG PO ×2 (08:49→15:06)
[2023-05-31] MEDS: Ibuprofen 600 MG Tablet PO (08:50)
[2023-05-31] MEDS: Ondansetron 8 MG Tablet PO ×2 (08:50→21:21)
--- NOTE | 2023-05-31 09:15 | PCM.PN.HOSP ---
Reason for Visit Reason for Visit: Diagnoses Alcohol use, unspecified with intoxication, unspecified (05/30/23) Subjective Subjective Patient still feeling shaky and a little bit nauseous but does feel like the medicines are helping thus far Objective Data Objective Data Vital Signs: Vital Signs Temp Pulse Resp BP Pulse Ox O2 Del Method 97.9 F 83 18 158/94 H 97 Room Air 05/31/23 06:31 05/31/23 06:31 05/31/23 06:31 05/31/23 06:31 05/31/23 06:31 05/31/23 08:34 Oxygen Delivery Method Room Air Weight: 62.1 kg Body Mass Index (BMI) 24.2 Intake & Output: Intake and Output for Last 24 Hours 05/29/23 05/30/23 05/31/23 23:59 23:59 23:59 Intake Total 1000 / 1000 1000 / 1000 Balance 1000 / 1000 1000 / 1000 Lab / Micro Data 05/31/23 06:37 05/31/23 05:30 Labs: Laboratory Results - last 24 hr 05/30/23 08:35: Sodium 139, Potassium 3.7, Chloride 103, Carbon Dioxide 24.0, Anion Gap 12, BUN 10, Creatinine 0.91, Estim Creat Clear Calc 62.54, Est GFR (MDRD) Af Amer 85, Est GFR (MDRD) Non-Af 70, BUN/Creatinine Ratio 11.0, Glucose 180 H, Calcium 7.7 L, Total Bilirubin 0.30, AST 42 H, ALT 64 H, Alkaline Phosphatase 113, Total Protein 7.8, Albumin 3.6, Globulin 4.2, Albumin/Globulin Ratio 0.9, Lipase 42, Ethyl Alcohol 272.0 05/30/23 14:42: Urine Color Yellow, Urine Clarity Sl. Cloudy, Urine pH 7.0, Ur Specific [place] 1.010, Urine Protein 15 H, Urine Glucose (UA) Normal, Urine Ketones 5 H, Urine Occult Blood 10 H, Urine Nitrite Negative, Urine Bilirubin Negative, Urine Urobilinogen Normal, Ur Leukocyte Esterase Negative, Urine Opiates Screen NEGATIVE, Urine Methadone Screen NEGATIVE, Ur Barbiturates Screen NEGATIVE, Ur Phencyclidine Scrn NEGATIVE, Ur Amphetamines Screen NEGATIVE, MDMA (Ecstasy) Screen NEGATIVE, U Benzodiazepines Scrn POSITIVE H, Urine Cocaine Screen NEGATIVE, U Cannabinoids Screen NEGATIVE, Ur Drug Screen Comment 05/31/23 05:30: WBC Cancelled, Corrected WBC Cancelled, RBC Cancelled, Hgb Cancelled, Hct Cancelled, MCV Cancelled, MCH Cancelled, MCHC Cancelled, RDW Std Deviation Cancelled, RDW Coeff of Dayo Cancelled, Plt Count Cancelled, MPV Cancelled, Immature Gran % (Auto) Cancelled, Neut % (Auto) Cancelled, Lymph % (Auto) Cancelled, [place] % (Auto) Cancelled, Eos % (Auto) Cancelled, Baso % (Auto) Cancelled, Absolute Neuts (auto) Cancelled, Absolute Lymphs (auto) Cancelled, Total Counted Cancelled, Neutrophils % (Manual) Cancelled, Band Neutrophils % Cancelled, Lymphocytes % (Manual) Cancelled, Monocytes % (Manual) Cancelled, Eosinophils % (Manual) Cancelled, Basophils % (Manual) Cancelled, Metamyelocytes % Cancelled, Myelocytes % Cancelled, Promyelocytes % Cancelled, Blast Cells % Cancelled, Plasma Cell % (Manual) Cancelled, Other Cells % Cancelled, Nucleated RBC % Cancelled, Nucleated RBCs/100 WBC Cancelled, Differential Comment Cancelled, Diff Path Review Cancelled, Hypersegmented Neuts Cancelled, Atypical Lymphocytes Cancelled, Reactive Lymphocytes Cancelled, Smudge Cells Cancelled, Toxic Granulation Cancelled, Toxic Vacuolation Cancelled, Dohle Bodies Cancelled, Viet Rods Cancelled, Platelet Estimate Cancelled, Plt Morphology Comment Cancelled, RBC Morphology Cancelled 05/31/23 05:30: RBC Morphology Cancelled, Polychromasia Cancelled, Hypochromasia Cancelled, Poikilocytosis Cancelled, Basophilic Stippling Cancelled, Anisocytosis Cancelled, Microcytosis Cancelled, Macrocytosis Cancelled, Spherocytes Cancelled, Sickle Cells Cancelled, Target Cells Cancelled, Tear Drop Cells Cancelled, Ovalocytes Cancelled, Stomatocytes Cancelled, Walker-[place] Bodies Cancelled, [place] Cells Cancelled, Bite Cells Cancelled, Crenated Cell Cancelled, Acanthocytes (Spur) Cancelled, Rouleaux Cancelled, Schistocytes Cancelled, Sodium 136, Potassium 3.9, Chloride 103, Carbon Dioxide 24.0, Anion Gap 9, BUN 8, Creatinine 0.80, Estim Creat Clear Calc 71.14, Est GFR (MDRD) Af Amer 98, Est GFR (MDRD) Non-Af 81, BUN/Creatinine Ratio 10.0, Glucose 95, Calcium 7.6 L, Total Bilirubin 1.00, AST 35, ALT 41, Alkaline Phosphatase 101, Total Protein 6.5, Albumin 3.1 L, Globulin 3.4, Albumin/Globulin Ratio 0.9 05/31/23 06:37: WBC 7.4, RBC 4.08 L, Hgb 13.0, Hct 37.1, MCV 90.9, MCH 31.9, MCHC 35.0 D, RDW Std Deviation 41.2, RDW Coeff of Dayo 12.7, Plt Count 280, MPV 8.6, Immature Gran % (Auto) 0.100, Neut % (Auto) 61.1, Lymph % (Auto) 25.2, [place] % (Auto) 11.1 H, Eos % (Auto) 1.6, Baso % (Auto) 0.9, Absolute Neuts (auto) 4.5, Absolute Lymphs (auto) 1.86, Nucleated RBC % 0 Physical Exam Narrative General: Wakes up easily, still appears to feel unwell HEENT: Atraumatic, normocephalic Eyes: Anicteric, normal conjunctiva, extraocular movements grossly intact Neck: Supple Respiratory: Clear to auscultation bilaterally, normal respiratory effort Cardiovascular: Slightly tachycardic GI: Soft, nontender, nondistended Extremities: No edema Musculoskeletal: Moving all extremities Neuro: Somewhat shaky still Skin: No rashes appreciated Psych: Cooperative Assessment & Plan Assessment/Plan (1) Acute alcohol intoxication: (2) Admitted to alcohol detoxification center: PLAN: Plan #Alcohol use disorder -Patient very poor historian with inconsistent history, additionally on initial evaluation was fidgeting and shaky would take rapid shallow breaths however when asked a question that she really thought about symptoms would improve before returning after she answered - We will begin CIWA, given concerns for her withdrawal symptoms will have CIWA every 2 with as needed medications added -Will begin phenobarbital taper -Gabapentin 300 mg every 8 as needed -Will start Bentyl and hydroxyzine as needed as well as loperamide as needed -Trazodone 100 mg p.o. nightly as needed sleep -Begin thiamine and folic acid supplementation -Zofran as needed for nausea -Case management consult to assist with discharge planning -EtOH level 272 and UDS will be obtained -Monitor closely for need for escalation of care -Also give liter of IVF specially given patient's nausea and suspect she has had poor p.o. intake -05/31: CIWA improving with present medication management #Hypertension -Patient used to be on clonidine, this was restarted at low-dose as this may help with her hypertension as well as her present withdrawal symptoms #Hx anxiety and depression -Given possible history of withdrawal seizure in the past we will hold on her home Wellbutrin, also has Adderall listed on her home med list which was last filled in January but would not continue this in acute setting either way -05/31: Supportive care #DVT ppx: Lovenox subcu given extent of patient's symptoms and unclear if she will be able to get up and ambulate Stacy Sanchez MD Time spent in the patient's overall evaluation,decision-making process, review of diagnostic data, adjustment of management, discussion with other providers, nursing nursing and ancillary staff involved in patient's care documentation, 35 Minutes Charges/Coding Visit Charges Inpatient E&M: 47315 Subs Hosp L2
[2023-05-31] MEDS: Gabapentin 300 MG Capsule PO (10:37)
[2023-05-31] MEDS: Acetaminophen 325 MG Tablet 650 MG PO (10:37)
[2023-05-31 10:39] VITALS: BP 143/82; PULSE 88; RESP 18; TEMP 36.6; O2SAT 98
--- NOTE | 2023-05-31 10:56 | ADDICTION ---
This rfp writer met with PT to conduct ASAM, MSE, AUDIT, DUDIT assessments and to plan for d/c. PT A+Ox4 and participated actively. All assessments completed and placed in PT's chart. When patient was here previously she minimized and justified her use. She agreed to residential treatment due to her mother not wanting her to come home. However she did not end up going nor did she follow through with outpatient treatment at [facility]. PT reports that she is committed to her plans to f/u with [facility] for follow-up outpatient treatment services. Pt did not indicate a need for transportation upon discharge.
[2023-05-31 15:03] VITALS: BP 158/93; PULSE 87; RESP 18; TEMP 36.7; O2SAT 99
[2023-05-31 21:12] VITALS: BP 123/68; PULSE 68; RESP 18; TEMP 36.7; O2SAT 98
[2023-06-01 03:33] VITALS: BP 150/90; PULSE 82; RESP 18; TEMP 36.8; O2SAT 98
[2023-06-01] MEDS: Phenobarbital 32.4 MG Tablet PO ×5 (04:36→18:30)
[2023-06-01 06:46] VITALS: BP 150/100; PULSE 81
[2023-06-01] MEDS: Ondansetron 8 MG Tablet PO ×2 (06:47→15:39)
[2023-06-01] MEDS: cloNIDine HCl 0.1 MG Tablet 0.05 MG PO ×3 (06:47→22:00)
--- NOTE | 2023-06-01 08:25 | PCM.PN.HOSP ---
Reason for Visit Reason for Visit: Diagnoses Alcohol use, unspecified with intoxication, unspecified (05/30/23) Subjective Subjective Patient reports since before she came in when she was throwing up she has been having some throat burning and reflux symptoms making it irritating eat has also been having some diarrhea but abdominal pain is improving Objective Data Objective Data Vital Signs: Vital Signs Temp Pulse Resp BP Pulse Ox O2 Del Method 98.2 F 81 18 150/100 H 98 Room Air 06/01/23 03:33 06/01/23 06:46 06/01/23 03:33 06/01/23 06:46 06/01/23 03:33 06/01/23 03:42 Oxygen Delivery Method Room Air Weight: 62.1 kg Body Mass Index (BMI) 24.2 Intake & Output: Intake and Output for Last 24 Hours 05/30/23 05/31/23 06/01/23 23:59 23:59 23:59 Intake Total 1000 / 1000 1900 / 1900 Balance 1000 / 1000 1900 / 1900 Lab / Micro Data 05/31/23 06:37 05/31/23 05:30 Physical Exam Narrative General: Alert, oriented HEENT: Atraumatic, normocephalic Eyes: Anicteric, normal conjunctiva, extraocular movements grossly intact Neck: Supple Respiratory: Clear to auscultation bilaterally, normal respiratory effort Cardiovascular: Regular rate and rhythm GI: Soft, nontender, nondistended Extremities: No edema Musculoskeletal: Moving all extremities Neuro: No overt focal neurological deficits Skin: No rashes appreciated Psych: Superficially cooperative Assessment & Plan Assessment/Plan (1) Acute alcohol intoxication: (2) Admitted to alcohol detoxification center: PLAN: Plan #Alcohol use disorder -Patient very poor historian with inconsistent history, additionally on initial evaluation was fidgeting and shaky would take rapid shallow breaths however when asked a question that she really thought about symptoms would improve before returning after she answered - We will begin CIWA, given concerns for her withdrawal symptoms will have CIWA every 2 with as needed medications added -Will begin phenobarbital taper -Gabapentin 300 mg every 8 as needed -Will start Bentyl and hydroxyzine as needed as well as loperamide as needed -Trazodone 100 mg p.o. nightly as needed sleep -Begin thiamine and folic acid supplementation -Zofran as needed for nausea -Case management consult to assist with discharge planning -EtOH level 272 and UDS will be obtained -Monitor closely for need for escalation of care -Also give liter of IVF specially given patient's nausea and suspect she has had poor p.o. intake -05/31: CIWA improving with present medication management -06/01: CIWA scores improving, patient on phenobarb taper through Sunday afternoon, continue present management #Hypertension -Patient used to be on clonidine, this was restarted at low-dose as this may help with her hypertension as well as her present withdrawal symptoms -06/01: Doing well on clonidine, will continue at this time #Hx anxiety and depression -Given possible history of withdrawal seizure in the past we will hold on her home Wellbutrin, also has Adderall listed on her home med list which was last filled in January but would not continue this in acute setting either way -05/31: Supportive care #DVT ppx: Lovenox subcu Stacy Sanchez MD Time spent in the patient's overall evaluation,decision-making process, review of diagnostic data, adjustment of management, discussion with other providers, nursing nursing and ancillary staff involved in patient's care documentation, 35 Minutes Charges/Coding Visit Charges Inpatient E&M: 86774 Subs Hosp L2
[2023-06-01] MEDS: Folic Acid 1 MG Tablet PO (08:56)
[2023-06-01] MEDS: Enoxaparin 40 MG/0.4 ML Syringe SC (08:57)
[2023-06-01] MEDS: Thiamine Hydrochloride 100 MG Tablet PO (08:57)
[2023-06-01 09:18] VITALS: BP 138/78; PULSE 96; RESP 17; TEMP 36.6; O2SAT 99
--- NOTE | 2023-06-01 09:53 | CASEMGMT ---
Social Work As per initial access database developer, pt indicated does not have LW/POA and declined further information. SILVESTRE Steward
[2023-06-01 15:00] VITALS: BP 168/96; PULSE 80; RESP 19; TEMP 36.7; O2SAT 100
[2023-06-01] MEDS: Loperamide 2 MG Capsule PO (15:43)
[2023-06-01] MEDS: Gabapentin 300 MG Capsule PO (15:46)
[2023-06-01] MEDS: Sodium Chloride 0.65% 1 SPRAY SPRAY.BTL 2 SPRAY NASAL (19:56)
[2023-06-01] MEDS: Acetaminophen 325 MG Tablet 650 MG PO (20:02)
[2023-06-01] MEDS: hydrOXYzine PAM 25 MG Capsule 50 MG PO (20:02)
[2023-06-01 21:39] VITALS: BP 144/92; PULSE 91; RESP 20; TEMP 36.7; O2SAT 99
[2023-06-01] MEDS: LORazepam 2 MG/ML Syringe IV (21:50)
[2023-06-01] MEDS: 0.9% Saline Lock 10 ML Syringe IV (21:52)
[2023-06-01] MEDS: Pantoprazole Sodium 40 MG Tablet PO (21:59)
[2023-06-01] MEDS: Sucralfate 1 GM Tablet PO (21:59)
[2023-06-02] VITALS (9 sets, daily range): BP systolic 128–164; BP diastolic 78–97; PULSE 83–100; RESP 12–18; TEMP 36.1–36.9; O2SAT 98–100
[2023-06-02] MEDS: LORazepam 2 MG/ML Syringe IV ×4 (01:15→23:28)
[2023-06-02] MEDS: Phenobarbital 32.4 MG Tablet PO ×4 (03:02→18:38)
[2023-06-02 05:49] LABS: Absolute Lymphocyte Count 1.78 X10^3/uL (0.83-4.51); Absolute Neutrophil Count 3.1 X10^3/uL (2.0-7.7); Basophil# 0.06 X10^3/uL; Eosinophil# 0.38 X10^3/uL; Eosinophils% 6.3 % (0-5); Hematocrit 36.3 % (37-47); Hemoglobin 12.3 g/dL (12.0-15.0); Lymphocyte # 1.78 X10^3/ul (0.83-4.51); Lymphocyte % 29.6 % (19-41); Mean Corp Hgb Conc 33.9 g/dL (32-36); Mean Corpuscular Hgb 30.7 pg (27.0-32.0); Mean Corpuscular Volume 90.5 fL (81-99); Mean Platelet Vol. 8.9 fl (6.2-12.0); Monocyte# 0.67 X10^3/uL; Monocyte% 11.1 % (0-10); NRBC Flagged by Analyzer 0 % (0-5); Neutrophil # 3.12 X10^3/uL (2.7-7.7); Neutrophil % 51.8 % (47-70); Platelet Count 275 K/mm3 (150-450); RBC Distribution Width CV 12.9 % (11.6-14.6); RBC Distribution Width SD 41.5 fl (35.1-43.9); Red Blood Count 4.01 M/mm3 (4.2-5.4)
[2023-06-02 06:18] LABS: ALB/GLOB Ratio 0.8 RATIO (0.9-2.4); AST(SGOT) 17 U/L (15-37); Alanine Aminotransfer ALT/SGPT 26 U/L (13-56); Albumin, Serum 2.9 g/dL (3.2-5.0); Alkaline Phosphatase 110 U/L (45-117); Anion Gap 7 (5-15); BUN 8 mg/dL (7-18); BUN/Creat Ratio 10.1 RATIO (10-20); Chloride 106 mmol/L (98-107); Creatinine, Serum 0.79 mg/dL (0.55-1.02); EST Glomerular Filtration Rate 82 mL/min (>60); Est Glom Filt Rate - Afr Amer 99 mL/min (>60); Estimated Creatinine Clearance 72.04 ml/min; Globulin 3.5 g/dL (2.2-4.2); Glucose 110 mg/dL (74-106); Magnesium 2.2 mg/dL (1.6-2.6); Potassium 2.8 mmol/L (3.5-5.1); Protein, Total 6.4 g/dL (6.4-8.2); Sodium Level 138 mmol/L (136-145)
[2023-06-02] MEDS: cloNIDine HCl 0.1 MG Tablet 0.05 MG PO ×3 (06:27→21:44)
[2023-06-02] MEDS: Sucralfate 1 GM Tablet PO ×4 (06:27→21:44)
[2023-06-02] MEDS: Potassium Chloride Oral Tablet 20 MEQ PO (09:27)
[2023-06-02] MEDS: Thiamine Hydrochloride 100 MG Tablet PO (09:27)
[2023-06-02] MEDS: Calcium Carbonate 500 MG Tablet PO ×3 (09:27→16:38)
[2023-06-02] MEDS: Pantoprazole Sodium 40 MG Tablet PO ×2 (09:27→21:45)
[2023-06-02] MEDS: Enoxaparin 40 MG/0.4 ML Syringe SC (09:27)
[2023-06-02] MEDS: LORazepam 1 MG Tablet 2 MG PO ×2 (09:27→14:28)
[2023-06-02] MEDS: Potassium Chloride Oral Tablet 20 MEQ 60 MEQ PO (09:27)
[2023-06-02] MEDS: Folic Acid 1 MG Tablet PO (09:28)
[2023-06-02] MEDS: Gabapentin 300 MG Capsule PO ×2 (09:28→21:45)
--- NOTE | 2023-06-02 09:56 | PN.HOSP_ITS ---
Reason for Visit Reason for Visit: Diagnoses Alcohol use, unspecified with intoxication, unspecified (05/30/23) Subjective Subjective [place] she had some hallucinations last night and was anxious, feeling better today, swallowing feeling better, diarrhea slowing down Objective Data Objective Data Vital Signs: Vital Signs Temp Pulse Resp BP Pulse Ox O2 Del Method 98.3 F 92 16 128/94 H 99 Room Air 06/02/23 09:06 06/02/23 09:06 06/02/23 09:06 06/02/23 09:06 06/02/23 09:06 06/02/23 09:06 Oxygen Delivery Method Room Air Weight: 62.1 kg Body Mass Index (BMI) 24.2 Intake & Output: Intake and Output for Last 24 Hours 05/31/23 06/01/23 06/02/23 23:59 23:59 23:59 Intake Total 1900 / 1900 180 / 180 Balance 1900 / 1900 180 / 180 Lab / Micro Data 06/02/23 04:52 06/02/23 04:52 Labs: Laboratory Results - last 24 hr 06/02/23 04:52: WBC 6.0, RBC 4.01 L, Hgb 12.3, Hct 36.3 L, MCV 90.5, MCH 30.7, MCHC 33.9, RDW Std Deviation 41.5, RDW Coeff of Dayo 12.9, Plt Count 275, MPV 8.9, Immature Gran % (Auto) 0.200, Neut % (Auto) 51.8, Lymph % (Auto) 29.6, [place] % (Auto) 11.1 H, Eos % (Auto) 6.3 H, Baso % (Auto) 1.0, Absolute Neuts (auto) 3.1, Absolute Lymphs (auto) 1.78, Nucleated RBC % 0, Sodium 138, Potassium 2.8 L , Chloride 106, Carbon Dioxide 25.0, Anion Gap 7, BUN 8, Creatinine 0.79, Estim Creat Clear Calc 72.04, Est GFR (MDRD) Af Amer 99, Est GFR (MDRD) Non-Af 82, BUN/Creatinine Ratio 10.1, Glucose 110 H, Calcium 8.0 L, Magnesium 2.2, Total Bilirubin 0.20, AST 17, ALT 26, Alkaline Phosphatase 110, Total Protein 6.4, Albumin 2.9 L, Globulin 3.5, Albumin/Globulin Ratio 0.8 L Physical Exam Narrative General: Alert, oriented, no apparent distress HEENT: Atraumatic, normocephalic Eyes: extraocular movements grossly intact Neck: Supple Respiratory: normal respiratory effort Cardiovascular: no edema appreciated GI: nondistended Extremities: Moving all extremities Neuro: No overt focal neurological deficits Psych: Cooperative Assessment & Plan Assessment/Plan (1) Acute alcohol intoxication: (2) Admitted to alcohol detoxification center: PLAN: Plan #Alcohol use disorder -Patient very poor historian with inconsistent history, additionally on initial evaluation was fidgeting and shaky would take rapid shallow breaths however when asked a question that she really thought about symptoms would improve before returning after she answered - We will begin CIWA, given concerns for her withdrawal symptoms will have CIWA every 2 with as needed medications added -Will begin phenobarbital taper -Gabapentin 300 mg every 8 as needed -Will start Bentyl and hydroxyzine as needed as well as loperamide as needed -Trazodone 100 mg p.o. nightly as needed sleep -Begin thiamine and folic acid supplementation -Zofran as needed for nausea -Case management consult to assist with discharge planning -EtOH level 272 and UDS will be obtained -Monitor closely for need for escalation of care -Also give liter of IVF specially given patient's nausea and suspect she has had poor p.o. intake -05/31: CIWA improving with present medication management -06/01: CIWA scores improving, patient on phenobarb taper through Sunday afternoon, continue present management -06/02: We will plan to complete the phenobarb taper, unclear why patient worsened overnight but was doing better this a.m. #Hypertension -Patient used to be on clonidine, this was restarted at low-dose as this may help with her hypertension as well as her present withdrawal symptoms -06/01: Doing well on clonidine, will continue at this time #Hx anxiety and depression -Given possible history of withdrawal seizure in the past we will hold on her home Wellbutrin, also has Adderall listed on her home med list which was last fi lled in January but would not continue this in acute setting either way -05/31: Supportive care #DVT ppx: Lovenox subcu Stacy Sanchez MD Time spent in the patient's overall evaluation,decision-making process, review of diagnostic data, adjustment of management, discussion with other providers, nursing nursing and ancillary staff involved in patient's care documentation, 30 Minutes Charges/Coding Visit Charges Inpatient E&M: 72622 Subs Hosp L1
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
[2023-06-02] MEDS: Acetaminophen 325 MG Tablet 650 MG PO (14:27)
[2023-06-02] MEDS: Dicyclomine 10 MG Capsule 20 MG PO (21:45)
[2023-06-03] VITALS (7 sets, daily range): BP systolic 123–164; BP diastolic 75–98; PULSE 77–92; RESP 12–16; TEMP 35.9–37.1; O2SAT 98–100
[2023-06-03] MEDS: 0.9% Saline Lock 10 ML Syringe IV ×2 (00:37→01:48)
[2023-06-03] MEDS: LORazepam 2 MG/ML Syringe IV ×3 (00:37→05:06)
[2023-06-03] MEDS: Phenobarbital 32.4 MG Tablet PO ×2 (00:37→13:15)
[2023-06-03] MEDS: Ibuprofen 600 MG Tablet PO ×3 (01:55→17:14)
[2023-06-03] MEDS: cloNIDine HCl 0.1 MG Tablet 0.05 MG PO ×3 (05:05→21:19)
[2023-06-03] MEDS: Acetaminophen 325 MG Tablet 650 MG PO ×3 (05:05→21:26)
[2023-06-03 05:25] LABS: Anion Gap 8 (5-15); BUN 7 mg/dL (7-18); BUN/Creat Ratio 10.2 RATIO (10-20); Calcium,Total 8.2 mg/dL (8.5-10.1); Chloride 106 mmol/L (98-107); Creatinine, Serum 0.69 mg/dL (0.55-1.02); EST Glomerular Filtration Rate 97 mL/min (>60); Est Glom Filt Rate - Afr Amer 117 mL/min (>60); Estimated Creatinine Clearance 82.48 ml/min; Glucose 99 mg/dL (74-106); Potassium 3.7 mmol/L (3.5-5.1); Sodium Level 138 mmol/L (136-145)
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
[2023-06-03] MEDS: Enoxaparin 40 MG/0.4 ML Syringe SC (09:41)
[2023-06-03] MEDS: Dicyclomine 10 MG Capsule 20 MG PO ×2 (09:41→21:20)
[2023-06-03] MEDS: Pantoprazole Sodium 40 MG Tablet PO ×2 (09:42→21:20)
[2023-06-03] MEDS: Thiamine Hydrochloride 100 MG Tablet PO (09:42)
[2023-06-03] MEDS: Sucralfate 1 GM Tablet PO ×3 (09:42→21:19)
[2023-06-03] MEDS: Folic Acid 1 MG Tablet PO (09:42)
[2023-06-03] MEDS: Calcium Carbonate 500 MG Tablet PO ×3 (09:42→17:14)
--- NOTE | 2023-06-03 13:38 | DCINST_ITS ---
Discharge Instructions Diet Discharge Diet: No restrictions Activity Discharge Activity: - (Increase activity as tolerated) Follow Up Care Test Results: Test results from this visit will be discussed in further detail at your follow- up appointment, if applicable. Discharge Plan Admission Admit Date/Time: 05/30/23 11:29 Primary Reason for Your Visit: Alcohol detox Attending Provider: Stacy Sanchez Primary Care Provider: [facility] Clarisse Alfredo Instructions Patient Instructions: Alcohol Addiction, Addiction: Getting Help, Addiction: Your Treatment Options, Addiction Recovery Counseling Additional Instructions / Restrictions: You are started on a medication that helps with blood pressure and anxiety, clonidine, a prescription for this has been sent to your preferred pharmacy on file. - It is strongly advised that you refrain from any substance use. Please call [facility] located at [address] [place], [place] [id number] ([place] [phone]) if you are interested in further resources Discharge Orders/Prescriptions Prescriptions: New clonidine HCl 0.1 mg Tablet 0.05 mg PO TID 30 Days Qty: 45 0RF Continued bupropion HCl 300 mg tablet extended release 24 hr 300 mg PO DAILY Patient Comments: TAKE 1 TABLET BY MOUTH EVERY MORNING FOR 30 DAYS Discontinued dextroamphetamine-amphetamine 30 mg tablet 15 mg PO DAILY [facility] - Within 1 Week Disposition Disposition (needs filled in before D/C Order can be placed): Home, Self Care
--- NOTE | 2023-06-03 13:43 | PCM.DC.SUM ---
Providers Date of Admission: 05/30/23 Primary Care Physician: Clarisse [facility] Reason For Visit: ETOH ABUSE, DETOX Diagnosis Discharge Diagnosis (1) Acute alcohol intoxication: Status: Acute Code(s): F10.929 - Alcohol use, unspecified with intoxication, unspecified (2) Admitted to alcohol detoxification center: Status: Acute Plan #Alcohol use disorder -Patient very poor historian with inconsistent history, additionally on initial evaluation was fidgeting and shaky would take rapid shallow breaths however when asked a question that she really thought about symptoms would improve before returning after she answered - We will begin CIWA, given concerns for her withdrawal symptoms will have CIWA every 2 with as needed medications added -Will begin phenobarbital taper -Gabapentin 300 mg every 8 as needed -Will start Bentyl and hydroxyzine as needed as well as loperamide as needed -Trazodone 100 mg p.o. nightly as needed sleep -Begin thiamine and folic acid supplementation -Zofran as needed for nausea -Case management consult to assist with discharge planning -EtOH level 272 and UDS will be obtained -Monitor closely for need for escalation of care -Also give liter of IVF specially given patient's nausea and suspect she has had poor p.o. intake -05/31: CIWA improving with present medication management -06/01: CIWA scores improving, patient on phenobarb taper through Sunday afternoon, continue present management -06/02: We will plan to complete the phenobarb taper, unclear why patient worsened overnight but was doing better this a.m. #Hypertension -Patient used to be on clonidine, this was restarted at low-dose as this may help with her hypertension as well as her present withdrawal symptoms -06/01: Doing well on clonidine, will continue at this time #Hx anxiety and depression -Given possible history of withdrawal seizure in the past we will hold on her home Wellbutrin, also has Adderall listed on her home med list which was last filled in January but would not continue this in acute setting either way -05/31: Supportive care #DVT ppx: Lovenox subcu Stacy Sanchez MD Time spent in the patient's overall evaluation,decision-making process, review of diagnostic data, adjustment of management, discussion with other providers, nursing nursing and ancillary staff involved in patient's care documentation, 30 Minutes Medications at Discharge Home Medications bupropion HCl 300 mg 24 hr tablet, extended release 300 mg PO DAILY depression 03/05/23 clonidine HCl 0.1 mg tablet 0.05 mg (1/2 x 0.1 mg) PO TID 30 days #45 tabs 06/03/23 Hospital Course Summary of Care Provided Minutes Spent on Discharge: 32 Hospital Course: Patient admitted 05/30/2023 for alcohol detox. Found vapes, hallucinations Weight / BMI Weight Weight: 62.1 kg Body Mass Index (BMI) 24.2 ABG / Lab / Microbiology Data 06/02/23 04:52 06/03/23 04:40 Laboratory: Laboratory Results - last 24 hr 06/03/23 04:40: Sodium 138, Potassium 3.7, Chloride 106, Carbon Dioxide 24.0, Anion Gap 8, BUN 7, Creatinine 0.69, Estim Creat Clear Calc 82.48, Est GFR (MDRD) Af Amer 117, Est GFR (MDRD) Non-Af 97, BUN/Creatinine Ratio 10.2, Glucose 99, Calcium 8.2 L D/C Instructions Discharge Diet: No restrictions Discharge Plan Admission Admit Date/Time: 05/30/23 11:29 Primary Reason for Your Visit: Alcohol detox Attending Provider: Stacy Sanchez [facility] Instructions Patient Instructions: Alcohol Addiction, Addiction: Getting Help, Addiction: Your Treatment Options, Addiction Recovery Counseling Additional Instructions / Restrictions: You are started on a medication that helps with blood pressure and anxiety, clonidine, a prescription for this has been sent to your preferred pharmacy on file. - It is strongly advised that you refrain from any substance use. Please call [facility] located at [address] [place], [place] [phone] ([place] [phone]) if you are interested in further resources Discharge Orders/Prescriptions Prescriptions: New clonidine HCl 0.1 mg Tablet 0.05 mg PO TID 30 Days Qty: 45 0RF Continued bupropion HCl 300 mg tablet extended release 24 hr 300 mg PO DAILY Patient Comments: TAKE 1 TABLET BY MOUTH EVERY MORNING FOR 30 DAYS Discontinued dextroamphetamine-amphetamine 30 mg tablet 15 mg PO DAILY [facility] - Within 1 Week Disposition Disposition (needs filled in before D/C Order can be placed): Home, Self Care
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
[2023-06-03] MEDS: Gabapentin 300 MG Capsule PO (17:14)
[2023-06-03] MEDS: traZODone 100 MG Tablet PO (21:26)
[2023-06-04] MEDS: Gabapentin 300 MG Capsule PO (01:19)
[2023-06-04] MEDS: Ibuprofen 600 MG Tablet PO (01:19)
[2023-06-04 05:26] VITALS: BP 136/87; PULSE 84; RESP 16; TEMP 36.4; O2SAT 98
[2023-06-04] MEDS: cloNIDine HCl 0.1 MG Tablet 0.05 MG PO (05:32)
[2023-06-04] MEDS: Sucralfate 1 GM Tablet PO ×2 (07:55→12:12)
[2023-06-04] MEDS: Folic Acid 1 MG Tablet PO (07:55)
[2023-06-04] MEDS: Calcium Carbonate 500 MG Tablet PO ×2 (07:55→12:11)
[2023-06-04] MEDS: Thiamine Hydrochloride 100 MG Tablet PO (07:56)
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
[2023-06-04 09:00] VITALS: BP 144/95; PULSE 74; RESP 14; TEMP 36.8; O2SAT 100
[2023-06-04] MEDS: Enoxaparin 40 MG/0.4 ML Syringe SC (09:06)
[2023-06-04] MEDS: Pantoprazole Sodium 40 MG Tablet PO (09:06)
--- NOTE | 2023-06-04 11:19 | DS.PCM_ITS ---
Providers Date of Admission: 05/30/23 Primary Care Physician: Clarisse [facility]errano [facility] Juni Reason For Visit: ETOH ABUSE, DETOX Diagnosis Discharge Diagnosis (1) Acute alcohol intoxication: Status: Acute Code(s): F10.929 - Alcohol use, unspecified with intoxication, unspecified (2) Admitted to alcohol detoxification center: Status: Acute Medications at Discharge Home Medications bupropion HCl 300 mg 24 hr tablet, extended release 300 mg PO DAILY depression 03/05/23 clonidine HCl 0.1 mg tablet 0.05 mg (1/2 x 0.1 mg) PO TID 30 days #45 tabs 06/03/23 Weight / BMI Weight Weight: 62.1 kg Body Mass Index (BMI) 24.2 ABG / Lab / Microbiology Data 06/02/23 04:52 06/03/23 04:40 D/C Instructions Discharge Diet: No restrictions Discharge Plan Admission Admit Date/Time: 05/30/23 11:29 Primary Reason for Your Visit: Alcohol detox Attending Provider: Mayur Lunsford [facility] Consulting Providers: Stacy Sanchez Instructions Patient Instructions: Alcohol Addiction, Addiction: Getting Help, Addiction: Your Treatment Options, Addiction Recovery Counseling Additional Instructions / Restrictions: You are started on a medication that helps with blood pressure and anxiety, clonidine, a prescription for this has been sent to your preferred pharmacy on file. - It is strongly advised that you refrain from any substance use. Please call [facility] located at [address] [place] [address] ([place] [phone]) if you are interested in further resources Discharge Orders/Prescriptions Prescriptions: New clonidine HCl 0.1 mg Tablet 0.05 mg PO TID 30 Days Qty: 45 0RF Continued bupropion HCl 300 mg tablet extended release 24 hr 300 mg PO DAILY Patient Comments: TAKE 1 TABLET BY MOUTH EVERY MORNING FOR 30 DAYS Discontinued dextroamphetamine-amphetamine 30 mg tablet 15 mg PO DAILY [facility] - Within 1 Week Disposition Disposition (needs filled in before D/C Order can be placed): Home, Self Care Charges/Coding Visit Charges Inpatient E&M: 51690 Disch Hosp >30min
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
[2023-06-04 14:40] VITALS: BP 142/92; PULSE 81; RESP 16; TEMP 37.1; O2SAT 99
== END 2023-06-04 14:40 | disposition home or self-care (01) | DRG 775 ==
LOC: ED 10:26 → PCU 12:00
PROVIDERS: Admitting Provider Internal Medicine; Emergency Provider Emergency Medicine; Visit Provider Internal Medicine
DX: F10.129 Alcohol abuse with intoxication, unspecified (principal); F22 Delusional disorders; I10 Essential (primary) hypertension; F41.8 Other specified anxiety disorders; R10.13 Epigastric pain; Y90.8 Blood alcohol level of 240 mg/100 ml or more
CPT/HCPCS: 36415; 80048; 80053; 80307; 81002; 82077; 83690; 83735; 85025; 99285; J7030; A4216; J2405

== ENCOUNTER 2023-06-14 17:08 | Inpatient (IN) | payer MEDICAID, SELFPAY ==
[2023-06-14] VITALS (7 sets, daily range): BP systolic 142–157; BP diastolic 67–93; PULSE 72–95; RESP 16–20; TEMP 36.7–36.9; O2SAT 95–100; BMI 25.2
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
[2023-06-14 17:46] LABS: Absolute Lymphocyte Count 2.37 X10^3/uL (0.83-4.51); Basophil% 1.1 % (0-1); Eosinophil# 0.04 X10^3/uL; Eosinophils% 0.4 % (0-5); Hematocrit 40.4 % (37-47); Hemoglobin 13.2 g/dL (12.0-15.0); Lymphocyte # 2.37 X10^3/ul (0.83-4.51); Lymphocyte % 25.5 % (19-41); Mean Corp Hgb Conc 32.7 g/dL (32-36); Mean Corpuscular Hgb 30.7 pg (27.0-32.0); Mean Platelet Vol. 8.4 fl (6.2-12.0); Monocyte# 0.74 X10^3/uL; NRBC Flagged by Analyzer 0 % (0-5); Neutrophil # 6.02 X10^3/uL (2.7-7.7); Neutrophil % 64.8 % (47-70); Platelet Count 432 K/mm3 (150-450); RBC Distribution Width CV 13.7 % (11.6-14.6); RBC Distribution Width SD 46.8 fl (35.1-43.9); White Blood Count 9.3 K/mm3 (4.4-11.0)
[2023-06-14] MEDS: 0.9% Normal Saline (1000mL) 1,000 ML 1000 ML IV (17:47)
[2023-06-14] MEDS: Ondansetron 4 MG/2 ML Vial IV (17:47)
[2023-06-14 17:57] LABS: Anion Gap 5 (5-15); BUN 9 mg/dL (7-18); BUN/Creat Ratio 8.8 RATIO (10-20); Calcium,Total 8.2 mg/dL (8.5-10.1); Chloride 108 mmol/L (98-107); Creatinine, Serum 1.02 mg/dL (0.55-1.02); EST Glomerular Filtration Rate 61 mL/min (>60); Est Glom Filt Rate - Afr Amer 74 mL/min (>60); Glucose 102 mg/dL (74-106); Sodium Level 140 mmol/L (136-145)
[2023-06-14] MEDS: Famotidine 200 MG/20 ML MDV 20 MG in 0.9% Normal Saline (Pres. free 8 ML 300 MG IV (18:05)
[2023-06-14 18:18] LABS: Internal QC Validated? YES +Cl - CLEAR BKGD; Pregnancy, Urine Negative Negative
[2023-06-14] MEDS: Haloperidol Lactate 5 MG/ML Vial 1 MG IV (19:20)
[2023-06-14 20:21] LABS: Amphetamine Urine VISTA NEGATIVE (<1000 ng/mL); Barbiturate Urine VISTA POSITIVE (< 200 ng/mL); Benzodiazepine Urine VISTA NEGATIVE (< 200 ng/mL); Cocaine Urine VISTA NEGATIVE (< 300 ng/mL); Ecstacy Urine VISTA NEGATIVE (< 500 ng/mL); Methadone Urine VISTA NEGATIVE (< 300 ng/mL); PCP Urine VISTA NEGATIVE (< 25 ng/mL); THC Urine VISTA NEGATIVE (< 50 ng/mL); Vista UDS pH Range 7
[2023-06-14] MEDS: Phenobarbital 32.4 MG Tablet 97.2 MG PO (21:18)
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
[2023-06-14 22:10] LABS: Magnesium 2.7 mg/dL (1.6-2.6); Phosphorus 4.4 mg/dL (2.5-4.9)
[2023-06-15] VITALS (13 sets, daily range): BP systolic 154–172; BP diastolic 85–98; PULSE 84–110; RESP 16–18; TEMP 36.4–37.1; O2SAT 95–99
[2023-06-15] MEDS: Menthol/Lanolin/Calamine/Znox 113 GM Tube 1 APPLIC TOPICAL ×5 (00:45→21:19)
[2023-06-15] MEDS: Lactated Ringers 1,000 ML 125 ML IV (00:45)
[2023-06-15] MEDS: LORazepam 2 MG/ML Syringe IV (00:46)
[2023-06-15] MEDS: Phenobarbital 32.4 MG Tablet PO ×7 (00:46→23:24)
[2023-06-15] MEDS: Ondansetron 8 MG Tablet PO (07:03)
[2023-06-15] MEDS: hydrALAZINE 20 MG/ML Vial 10 MG IV ×3 (07:03→20:17)
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
[2023-06-15] MEDS: Folic Acid 1 MG Tablet PO (08:39)
[2023-06-15] MEDS: buPROPion (XL) 300 MG TABLET.XL PO (08:39)
[2023-06-15] MEDS: Venlafaxine XR 37.5 MG Capsule PO (08:40)
[2023-06-15] MEDS: LORazepam 1 MG Tablet 2 MG PO ×3 (08:40→20:15)
[2023-06-15] MEDS: Thiamine Hydrochloride 100 MG Tablet PO (08:40)
[2023-06-15] MEDS: Lactated Ringers 1,000 ML 75 ML IV (10:51)
--- NOTE | 2023-06-15 12:14 | CASEMGMT ---
Social Work As per initial finish cleaner, pt does not have LW/POA and declined further information. SILVESTRE Steward
--- NOTE | 2023-06-15 16:11 | CHAPLAIN ---
Type of Pastoral Visit _x__ Initial Visit ___ Follow-up Visit ___ On-call Visit ___ General Patient Visit ___ Spiritual Assessment ___ Family Conference ___ Bereavement ___ Rapid Response ___ Code Blue ___ Other (describe below) Pastoral Care Referral From ___ Patient ___ Family ___ Nurse ___ Physician ___ Machine Operator Hop Worker ___ Candy Vendor ___ Other (describe below) Sacrament/Intervention ___ Active listening ___ Anointing ___ Taoism ___ Bereavement ___ Communion ___ Joseline exploration ___ ___ Life review ___ Prayer ___ Reconciliation ___ Sacrament of Sick _x__ Supportive presence ___ Wedding ___ Other (describe below) Pastoral Comments patient appears to be sleeping in bed but awakens to her name; pt has the shakes and does not open her eyes; pt asks if the visit could happen at another day as she is not feeling well; offer of future support given
[2023-06-15] MEDS: Ibuprofen 600 MG Tablet PO (20:17)
[2023-06-16] VITALS (10 sets, daily range): BP systolic 133–176; BP diastolic 73–96; PULSE 92–115; RESP 14–16; TEMP 36.6–37.3; O2SAT 97–100
[2023-06-16] MEDS: Phenobarbital 32.4 MG Tablet PO ×6 (03:08→23:08)
[2023-06-16] MEDS: buPROPion (XL) 300 MG TABLET.XL PO (10:24)
[2023-06-16] MEDS: Folic Acid 1 MG Tablet PO (10:24)
[2023-06-16] MEDS: Venlafaxine XR 37.5 MG Capsule PO (10:24)
[2023-06-16] MEDS: amLODIPine 5 MG Tablet PO (10:24)
[2023-06-16] MEDS: Thiamine Hydrochloride 100 MG Tablet PO (10:24)
[2023-06-16] MEDS: Menthol/Lanolin/Calamine/Znox 113 GM Tube 1 APPLIC TOPICAL ×4 (10:25→22:00)
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
[2023-06-17] VITALS (10 sets, daily range): BP systolic 124–174; BP diastolic 73–97; PULSE 87–113; RESP 14–17; TEMP 36.8–37.4; O2SAT 97–99
[2023-06-17] MEDS: hydrALAZINE 20 MG/ML Vial 10 MG IV (00:46)
[2023-06-17] MEDS: Acetaminophen 325 MG Tablet 650 MG PO ×2 (00:47→12:47)
[2023-06-17] MEDS: Phenobarbital 32.4 MG Tablet PO ×4 (03:01→18:52)
[2023-06-17] MEDS: Dicyclomine 10 MG Capsule 20 MG PO (09:47)
[2023-06-17] MEDS: Menthol/Lanolin/Calamine/Znox 113 GM Tube 1 APPLIC TOPICAL ×4 (09:50→22:26)
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
[2023-06-17] MEDS: proCHLORPERazine 10 MG/2 ML Vial 5 MG IM (11:56)
[2023-06-17] MEDS: Folic Acid 1 MG Tablet PO (12:39)
[2023-06-17] MEDS: Thiamine Hydrochloride 100 MG Tablet PO ×2 (12:39)
[2023-06-17] MEDS: Venlafaxine XR 37.5 MG Capsule PO (12:39)
[2023-06-17] MEDS: buPROPion (XL) 300 MG TABLET.XL PO (12:41)
[2023-06-17] MEDS: amLODIPine 10 MG Tablet PO (12:43)
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
[2023-06-17] MEDS: LORazepam 1 MG Tablet 2 MG PO (23:08)
[2023-06-18 01:13] VITALS: BP 145/69; PULSE 99; RESP 15; TEMP 36.8; O2SAT 100
[2023-06-18] MEDS: Phenobarbital 32.4 MG Tablet PO ×2 (01:21→06:23)
[2023-06-18] MEDS: Acetaminophen 325 MG Tablet 650 MG PO (01:26)
[2023-06-18 05:10] VITALS: BP 121/85; PULSE 89; RESP 18; TEMP 36.4; O2SAT 100
[2023-06-18] MEDS: LORazepam 1 MG Tablet 2 MG PO (05:12)
[2023-06-18 06:21] VITALS: BP 126/78; PULSE 89; RESP 15; TEMP 36.2; O2SAT 100
[2023-06-18 06:44] LABS: Anion Gap 9 (5-15); BUN 4 mg/dL (7-18); BUN/Creat Ratio 5.1 RATIO (10-20); Calcium,Total 7.8 mg/dL (8.5-10.1); Chloride 105 mmol/L (98-107); Creatinine, Serum 0.79 mg/dL (0.55-1.02); EST Glomerular Filtration Rate 83 mL/min (>60); Est Glom Filt Rate - Afr Amer 100 mL/min (>60); Estimated Creatinine Clearance 72.04 ml/min; Glucose 137 mg/dL (74-106); Magnesium 2.1 mg/dL (1.6-2.6); Phosphorus 2.4 mg/dL (2.5-4.9); Potassium 3.4 mmol/L (3.5-5.1); Sodium Level 136 mmol/L (136-145)
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
[2023-06-18 09:56] VITALS: BP 153/90; PULSE 95; RESP 18; TEMP 36.6; O2SAT 99
[2023-06-18] MEDS: Venlafaxine XR 37.5 MG Capsule PO (09:57)
[2023-06-18] MEDS: amLODIPine 10 MG Tablet PO (09:57)
[2023-06-18] MEDS: Folic Acid 1 MG Tablet PO (09:57)
[2023-06-18] MEDS: buPROPion (XL) 300 MG TABLET.XL PO (09:57)
[2023-06-18] MEDS: Menthol/Lanolin/Calamine/Znox 113 GM Tube 1 APPLIC TOPICAL (09:58)
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
--- NOTE | 2023-06-18 11:19 | PHA.DC.MC.R ---
Pharmacy [facility] Service has performed discharge medication reconciliation and counseling for this patient. The patient's discharge medication list was reviewed for discrepancies and discrepancies were resolved. The patient was counseled on the following discharge medications and changes in medications for homegoing were reviewed. The Reason for Use, instructions for use, and potential side effects were reviewed for all new medications. The patient's questions regarding all of their medications were answered. 1. Amlodipine 10 mg PO daily The patient was able to verbally demonstrate an understanding of their discharge medications. Medications at Discharge Home Medications bupropion HCl 300 mg 24 hr tablet, extended release 300 mg PO DAILY depression 03/05/23 venlafaxine 37.5 mg capsule,extended release 24 hr 37.5 mg PO DAILY 06/14/23 zolpidem 10 mg PO DAILY PRN sleep 06/14/23 clonidine HCl 0.1 mg tablet 0.05 mg PO TID blood pressure 06/16/23 amlodipine 10 mg tablet 10 mg PO DAILY #60 tabs 06/18/23
== END 2023-06-18 12:42 | disposition home or self-care (01) | DRG 775 ==
LOC: ED 21:59 → PCU 22:13
PROVIDERS: Internal Medicine; Admitting Provider Family Medicine; Emergency Provider Emergency Medicine; Visit Provider Internal Medicine
DX: F10.239 Alcohol dependence with withdrawal, unspecified (principal); K62.6 Ulcer of anus and rectum; J44.9 Chronic obstructive pulmonary disease, unspecified; F32.A Depression, unspecified; I10 Essential (primary) hypertension; F17.290 Nicotine dependence, other tobacco product, uncomplicated; R11.2 Nausea with vomiting, unspecified; F41.9 Anxiety disorder, unspecified; F43.10 Post-traumatic stress disorder, unspecified; Z79.899 Other long term (current) drug therapy; Y90.8 Blood alcohol level of 240 mg/100 ml or more
CPT/HCPCS: 36415; 80048; 80307; 81025; 82077; 83735; 84100; 85025; 87428; 99285; J7030; J7120; A4216; J2405; J3490

== ENCOUNTER 2023-07-30 16:11 | Observation (INO) | payer MEDICAID, SELFPAY ==
[2023-07-30] VITALS (8 sets, daily range): BP systolic 123–165; BP diastolic 78–103; PULSE 79–107; RESP 11–18; TEMP 35.7–36.7; O2SAT 98–100; BMI 27.1; BMI 25.1
--- NOTE | 2023-07-30 16:44 | CT_ITS ---
STUDY: CT BRAIN WITHOUT CONTRAST REASON FOR EXAM: Female, 47 years old. seizure today RADIATION DOSAGE (If Supplied By Facility): CTDIvol = ( 44.99 ) mGy, DLP = ( 779.24 ) mGycm TECHNIQUE: Transaxial CT imaging of the brain was performed without administration of intravenous contrast material. Individualized dose optimization techniques were used for this CT. COMPARISON: No relevant priors. FINDINGS: Normal soft tissue structures. Normal calvarium. Normal size ventricles and extra-axial spaces for the patient''s age. Normal white matter tracts of the cerebral hemispheres. Normal basal ganglia and thalami. Normal brainstem. Normal cerebellum. There is no intracranial hemorrhage. There are no findings of an acute ischemic infarction. Normal visualized paranasal sinuses. CT/Brain/Head without Contrast IMPRESSION: Normal unenhanced CT scan of the brain. Electronically Signed: Diogenes Auguste DO at 18:36 EST ,
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
[2023-07-30 17:21] LABS: Absolute Lymphocyte Count 3.13 X10^3/uL (0.83-4.51); Absolute Neutrophil Count 6.8 X10^3/uL (2.0-7.7); Basophil# 0.08 X10^3/uL; Basophil% 0.7 % (0-1); Eosinophil# 0.23 X10^3/uL; Eosinophils% 2.1 % (0-5); Hematocrit 41.3 % (37-47); Hemoglobin 13.8 g/dL (12.0-15.0); Lymphocyte # 3.13 X10^3/ul (0.83-4.51); Lymphocyte % 28.8 % (19-41); Mean Corp Hgb Conc 33.4 g/dL (32-36); Mean Corpuscular Hgb 29.9 pg (27.0-32.0); Mean Corpuscular Volume 89.4 fL (81-99); Mean Platelet Vol. 9.6 fl (6.2-12.0); Monocyte# 0.63 X10^3/uL; Monocyte% 5.8 % (0-10); NRBC Flagged by Analyzer 0 % (0-5); Neutrophil # 6.76 X10^3/uL (2.7-7.7); Neutrophil % 62.2 % (47-70); Platelet Count 388 K/mm3 (150-450); RBC Distribution Width CV 12.4 % (11.6-14.6); RBC Distribution Width SD 40.8 fl (35.1-43.9); Red Blood Count 4.62 M/mm3 (4.2-5.4); White Blood Count 10.9 K/mm3 (4.4-11.0)
[2023-07-30] MEDS: LORazepam 2 MG/ML Syringe 1 MG IV (17:25)
[2023-07-30 17:43] LABS: AST(SGOT) 20 U/L (15-37); Alanine Aminotransfer ALT/SGPT 34 U/L (13-56); Albumin, Serum 4.1 g/dL (3.2-5.0); Alkaline Phosphatase 102 U/L (45-117); Anion Gap 12 (5-15); BUN 9 mg/dL (7-18); BUN/Creat Ratio 7.9 RATIO (10-20); Calcium,Total 9.8 mg/dL (8.5-10.1); Chloride 106 mmol/L (98-107); Creatinine, Serum 1.14 mg/dL (0.55-1.02); EST Glomerular Filtration Rate 54 mL/min (>60); Est Glom Filt Rate - Afr Amer 65 mL/min (>60); Estimated Creatinine Clearance 56.44 ml/min; Globulin 4.3 g/dL (2.2-4.2); Glucose 84 mg/dL (74-106); Potassium 3.7 mmol/L (3.5-5.1); Protein, Total 8.4 g/dL (6.4-8.2); Sodium Level 140 mmol/L (136-145)
[2023-07-30 17:48] LABS: Amphetamine Urine VISTA NEGATIVE (<1000 ng/mL); Barbiturate Urine VISTA NEGATIVE (< 200 ng/mL); Benzodiazepine Urine VISTA NEGATIVE (< 200 ng/mL); Cocaine Urine VISTA NEGATIVE (< 300 ng/mL); Ecstacy Urine VISTA POSITIVE (< 500 ng/mL); Methadone Urine VISTA NEGATIVE (< 300 ng/mL); PCP Urine VISTA NEGATIVE (< 25 ng/mL); THC Urine VISTA NEGATIVE (< 50 ng/mL); Vista UDS pH Range 5
[2023-07-30] MEDS: Ondansetron 4 MG/2 ML Vial IV (18:52)
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
[2023-07-30] MEDS: Acetaminophen 325 MG Tablet 650 MG PO (21:21)
[2023-07-30] MEDS: Mirtazapine 15 MG Tablet PO (21:22)
[2023-07-31 05:30] VITALS: BP 135/83; PULSE 68; RESP 18; TEMP 36.7; O2SAT 100
--- NOTE | 2023-07-31 06:00 | MRI_ITS ---
STUDY: MRI BRAIN WITHOUT CONTRAST REASON FOR EXAM: Female, 47 years old. Seizure like activity TECHNIQUE: Standardized multiplanar fat and water weighted pulse sequences were obtained. COMPARISON: Head CT dated July 30, 2023 FINDINGS: There is moderate cerebral atrophy with widening of the extra-axial spaces and ventricular dilatation. There is frontal lobe predominance of the cerebral atrophy. There are a limited number of small white matter hyperintensities, distributed throughout the deep white matter tracts of the cerebral hemispheres, consistent with mild chronic white matter ischemic changes. There is no evidence for recent intracranial ischemia or other cause of cytotoxic edema on diffusion weighted imaging (DWI). Normal T2* images of the brain without demonstrated susceptibility artifact. There is no demonstrated hemosiderin stain. There are no demyelinating plagues of the supratentorial brain, brainstem or cerebellum. There are no findings suspicious for multiple sclerosis (MS). Normal bilateral basal ganglia. Normal thalami. There is no extra-axial fluid accumulation. Normal flow voids within the major intracranial circulation suggesting patency by spin echo criteria. Normal sella turcica, pituitary gland, infundibular stalk, optic chiasm and hypothalamus. Normal tectal plate and pineal gland. Normal midbrain, jill and medulla. Normal cerebellum. Normal basal cisterns. Normal bilateral temporal bones. Normal bilateral internal auditory canals. No demonstrated orbital abnormality, within the constraints of a routine brain study. Normal visualized paranasal sinuses. Normal calvarium and skull base. Normal visualized soft tissue structures. Normal visualized upper cervical spine. MRI/Brain without Contrast IMPRESSION: 1. Involutional changes of the brain, with frontal lobe predominance, as described above. 2. Mild chronic ischemic changes of the white matter. Electronically Signed: Sb Ojeda MD at 10:12 EST Reading Location ID and State: [facility] / [place] , Service support ,
[2023-07-31 07:18] LABS: Absolute Neutrophil Count 4.3 X10^3/uL (2.0-7.7); Basophil# 0.05 X10^3/uL; Basophil% 0.6 % (0-1); Eosinophil# 0.33 X10^3/uL; Eosinophils% 4.2 % (0-5); Hematocrit 39.6 % (37-47); Hemoglobin 13.1 g/dL (12.0-15.0); Lymphocyte % 30.3 % (19-41); Mean Corp Hgb Conc 33.1 g/dL (32-36); Mean Corpuscular Volume 90.8 fL (81-99); Mean Platelet Vol. 9.5 fl (6.2-12.0); Monocyte# 0.86 X10^3/uL; Monocyte% 10.9 % (0-10); NRBC Flagged by Analyzer 0 % (0-5); Neutrophil # 4.25 X10^3/uL (2.7-7.7); Neutrophil % 53.7 % (47-70); Platelet Count 315 K/mm3 (150-450); RBC Distribution Width CV 12.4 % (11.6-14.6); RBC Distribution Width SD 41.3 fl (35.1-43.9); Red Blood Count 4.36 M/mm3 (4.2-5.4); White Blood Count 7.9 K/mm3 (4.4-11.0)
[2023-07-31 08:00] LABS: AST(SGOT) 20 U/L (15-37); Alanine Aminotransfer ALT/SGPT 28 U/L (13-56); Albumin, Serum 3.6 g/dL (3.2-5.0); Alkaline Phosphatase 85 U/L (45-117); Anion Gap 6 (5-15); BUN 8 mg/dL (7-18); BUN/Creat Ratio 8.1 RATIO (10-20); Calcium,Total 8.9 mg/dL (8.5-10.1); Chloride 109 mmol/L (98-107); Creatinine, Serum 0.99 mg/dL (0.55-1.02); EST Glomerular Filtration Rate 64 mL/min (>60); Est Glom Filt Rate - Afr Amer 77 mL/min (>60); Estimated Creatinine Clearance 62.75 ml/min; Globulin 3.6 g/dL (2.2-4.2); Glucose 109 mg/dL (74-106); Potassium 3.9 mmol/L (3.5-5.1); Protein, Total 7.2 g/dL (6.4-8.2); Sodium Level 139 mmol/L (136-145); Thyroid Stim Hormone (TSH) 1.51 uIU/mL (0.358-3.74)
[2023-07-31] MEDS: Folic Acid 1 MG Tablet PO (09:00)
[2023-07-31] MEDS: Thiamine Hydrochloride 100 MG Tablet PO (11:00)
[2023-07-31] MEDS: Venlafaxine XR 37.5 MG Capsule PO (11:00)
[2023-07-31] MEDS: Polyethylene Glycol 3350 17 GM PACKET PO (11:00)
[2023-07-31 11:30] VITALS: BP 135/83; PULSE 82; RESP 16; TEMP 36.3; O2SAT 100
[2023-07-31] MEDS: 0.9% Saline Lock 10 ML Syringe IV (12:55)
--- NOTE | 2023-07-31 13:53 | PCM.DC ---
Discharge Instructions Diet Discharge Diet: No restrictions Activity Discharge Activity: Return to Normal Activity and May Not Drive (for 6 months) Weight Bearing Status: Full weight bearing Follow Up Care Test Results: Test results from this visit will be discussed in further detail at your follow-up appointment, if applicable. Discharge Plan Admission Admit Date/Time: 07/30/23 19:18 Primary Reason for Your Visit: seizure Attending Provider: Kevan Simms Primary Care Provider: [facility],Clarisse Serrano Consulting Providers: Gibson Cevallos; Norah Fuentes; Анна Yanez; Adrian Strickland; Nataliya Duarte; KEVIN SCHMID; Martina Reid; Zeina Rendon; Channing Head; Leonarda Maldonado; Bridger Tom; Halle Sabillon; Dariana Romero; Lázaro Millan; Richa Matamoros; Ross Mandujano; Glenn Bradley; Mitch Cantor; Xu Ramos; Miranda Cheung; Trevon Valdez; Amy Martinez; Wilberto Cuevas; Anastacia Castillo; Donna Juarez; Stacy Sanchez Discharge Orders/Prescriptions Prescriptions: New levetiracetam [Keppra] 500 mg tablet 500 mg PO BID Qty: 60 0RF Continued bupropion HCl 300 mg tablet extended release 24 hr 300 mg PO DAILY Patient Comments: TAKE 1 TABLET BY MOUTH EVERY MORNING FOR 30 DAYS docusate sodium 100 mg capsule 100 mg PO BID folic acid 1 mg tablet 1 mg PO DAILY hydroxyzine pamoate 25 mg capsule 25 mg PO Q4H PRN (Reason: anxiety) mirtazapine 15 mg tablet 15 mg PO QHS Vivitrol 380 mg suspension,extended rel recon 380 mg IM .COMPLEX Rx Instructions: 380 mg intramuscularly MONTHLY; polyethylene glycol 3350 17 gram/dose powder 17 g PO DAILY quetiapine 200 mg tablet extended release 24 hr 200 mg PO DAILY thiamine HCl (vitamin B1) 100 mg tablet 100 mg PO DAILY tizanidine 4 mg tablet 4 mg PO Q12H venlafaxine 37.5 mg capsule,extended release 24hr 37.5 mg PO DAILY Patient Comments: TAKE 1 CAPSULE BY MOUTH EVERY DAY clonidine HCl 0.1 mg tablet 0.1 mg PO DAILY Patient Comments: TAKE 1/2 A TABLET BY MOUTH THREE TIMES A DAY FOR 30 DAYS Referrals / Follow Up: [facility],Clarisse Serrano [Primary Care Provider] - Within 2 Weeks (You will need referred to a neurologist) Disposition Disposition (needs filled in before D/C Order can be placed): Home, Self Care
--- NOTE | 2023-07-31 14:20 | PCM.DC.SUM ---
Providers Date of Admission: 07/30/23 Date of Discharge: 07/31/23 Primary Care Physician: Clarisse [facility] Consultations 07/30/23 20:46 Neurology [Consult: Tele-Neurology] Routine Consulting Provider: [facility] Reason for Consult: Concern for seizure activity not associated w/ etoh w/drawal EMERGENT Consult: No MD Notified: Yes Date Notified: 07/30/23 Time Notified: 23:02 Method of Notification: Answering Service Comments:: called [facility] Staff Notify [facility] of Tele-Neurology Consult: Yes Reason For Visit: SEIZURE Diagnosis Discharge Diagnosis (1) Seizure-like activity: Status: Acute Code(s): R56.9 - Unspecified convulsions (2) History of alcoholism: Status: Acute Code(s): F10.21 - Alcohol dependence, in remission (3) Hypertension: Status: Chronic Code(s): I10 - Essential (primary) hypertension (4) Anxiety and depression: Status: Acute Code(s): F41.9 - Anxiety disorder, unspecified; F32.A - Depression, unspecified Plan 1. Seizure disorder #2 alcoholism #3 anxiety and depression Medications at Discharge Home Medications bupropion HCl 300 mg 24 hr tablet, extended release 300 mg PO DAILY depression 03/05/23 venlafaxine 37.5 mg capsule,extended release 24 hr 37.5 mg PO DAILY 06/14/23 clonidine HCl 0.1 mg tablet 0.1 mg PO DAILY blood pressure 06/16/23 docusate sodium 100 mg capsule 100 mg PO BID 07/30/23 folic acid 1 mg tablet 1 mg PO DAILY 07/30/23 hydroxyzine pamoate 25 mg capsule 25 mg PO Q4H PRN anxiety 07/30/23 mirtazapine 15 mg tablet 15 mg PO QHS 07/30/23 naltrexone microspheres 380 mg intramuscular suspension,extended release (Vivitrol) 380 mg IM .COMPLEX 07/30/23 polyethylene glycol 3350 17 gram/dose oral powder 17 g PO DAILY 07/30/23 quetiapine 200 mg tablet,extended release 24 hr 200 mg PO DAILY 07/30/23 thiamine HCl (vitamin B1) 100 mg tablet 100 mg PO DAILY 07/30/23 tizanidine 4 mg tablet 4 mg PO Q12H 07/30/23 levetiracetam 500 mg tablet (Keppra) 500 mg PO BID #60 tabs 07/31/23 Hospital Course Operations None Procedures Electroencephalogram Summary of Care Provided Minutes Spent on Discharge: 30 Hospital Course: This 47-year-old white female was seen in the emergency room with complaints of possible seizure at home with body tremors. She has had seizures before when she was withdrawing from alcohol in the past-patient is a chronic alcoholic, she had been through detox recently and had been clean for 40 days and drank whiskey yesterday after which she had an episode which appeared to be a seizure, patient's mother stated it lasted approximately 4 minutes. Patient was alert and oriented x 3 in the emergency room, patient's urine tox screen was positive for MDMA, alcohol level was 7, chemistry profile was unremarkable except for slightly elevated creatinine. Patient was admitted to PCU, she was seen in consultation by teleneurology, teleneurology recommended the patient be placed on Keppra 500 mg twice daily, patient appears to have had an EEG performed but at the time of this dictation were read out as not available to review. Early in the afternoon of 07/31/2023, patient voiced to nursing that she desired to be discharged, I had not seen the patient and I was on the way down to see her by the time I got to her room patient had walked out of the hospital. I prescription have been called in for Her for the patient. Patient was discharged AMA Weight / BMI Weight Weight: 64.4 kg Body Mass Index (BMI) 25.1 ABG / Lab / Microbiology Data 07/31/23 06:46 07/31/23 06:46 Laboratory: Laboratory Results - last 24 hr 07/30/23 17:10: WBC 10.9, RBC 4.62, Hgb 13.8, Hct 41.3, MCV 89.4, MCH 29.9, MCHC 33.4, RDW Std Deviation 40.8, RDW Coeff of Dayo 12.4, Plt Count 388, MPV 9.6, Immature Gran % (Auto) 0.400, Neut % (Auto) 62.2, Lymph % (Auto) 28.8, Nance % (Auto) 5.8, Eos % (Auto) 2.1, Baso % (Auto) 0.7, Absolute Neuts (auto) 6.8, Absolute Lymphs (auto) 3.13, Nucleated RBC % 0, Sodium 140, Potassium 3.7, Chloride 106, Carbon Dioxide 22.0, Anion Gap 12, BUN 9, Creatinine 1.14 H, Estim Creat Clear Calc 56.44, Est GFR (MDRD) Af Amer 65, Est GFR (MDRD) Non-Af 54 L, BUN/Creatinine Ratio 7.9 L, Glucose 84, Calcium 9.8, Total Bilirubin 0.30, AST 20, ALT 34, Alkaline Phosphatase 102, Total Protein 8.4 H, Albumin 4.1, Globulin 4.3 H, Albumin/Globulin Ratio 1.0, Urine Opiates Screen NEGATIVE, Urine Methadone Screen NEGATIVE, Ur Barbiturates Screen NEGATIVE, Ur Phencyclidine Scrn NEGATIVE, Ur Amphetamines Screen NEGATIVE, MDMA (Ecstasy) Screen POSITIVE H, U Benzodiazepines Scrn NEGATIVE, Urine Cocaine Screen NEGATIVE, U Cannabinoids Screen NEGATIVE, Ur Drug Screen Comment , Ethyl Alcohol 7.0 07/31/23 06:46: WBC 7.9, RBC 4.36, Hgb 13.1, Hct 39.6, MCV 90.8, MCH 30.0, MCHC 33.1, RDW Std Deviation 41.3, RDW Coeff of Dayo 12.4, Plt Count 315, MPV 9.5, Immature Gran % (Auto) 0.300, Neut % (Auto) 53.7, Lymph % (Auto) 30.3, Nance % (Auto) 10.9 H, Eos % (Auto) 4.2, Baso % (Auto) 0.6, Absolute Neuts (auto) 4.3, Absolute Lymphs (auto) 2.40, Nucleated RBC % 0, Sodium 139, Potassium 3.9, Chloride 109 H, Carbon Dioxide 24.0, Anion Gap 6, BUN 8, Creatinine 0.99, Estim Creat Clear Calc 62.75, Est GFR (MDRD) Af Amer 77, Est GFR (MDRD) Non-Af 64, BUN/Creatinine Ratio 8.1 L, Glucose 109 H, Calcium 8.9, Total Bilirubin 0.40, AST 20, ALT 28, Alkaline Phosphatase 85, Total Protein 7.2, Albumin 3.6, Globulin 3.6, Albumin/Globulin Ratio 1.0, TSH 1.51 Radiography Diagnostic Testing: Radiology Impression Brain CT 07/30/23 16:44 IMPRESSION: Normal unenhanced CT scan of the brain. Electronically Signed: Diogenes Auguste DO at 18:36 EST , Brain MRI 07/31/23 06:00 IMPRESSION: 1. Involutional changes of the brain, with frontal lobe predominance, as described above. 2. Mild chronic ischemic changes of the white matter. Electronically Signed: Sb Ojeda MD at 10:12 EST , D/C Instructions Discharge Diet: No restrictions Weight Bearing Status: Full weight bearing Meaningful Use Info Meaningful Use Diagnoses (Choose all that apply): None applicable Discharge Plan Admission Admit Date/Time: 07/30/23 19:18 Primary Reason for Your Visit: seizure Attending Provider: Kevan Simms Primary Care Provider: [facility] Consulting Providers: Gibson Cevallos; Norah Fuentes; Анна Yanez; Adrian Strickland; Nataliya Duarte; KEVIN SCHMID; Martina Reid; Zeina Rendon; Channing Head; Leonarda Maldonado; Bridger Tom; Halle Sabillon; Dariana Romero; Lázaro Millan; Richa Matamoros; Ross Mandujano; Glenn Bradley; Mitch Cantor; Xu Ramos; Miranda Cheung; Trevon Valdez; Amy Martinez; Wilberto Cuevas; Anastacia Castillo; Donna Juarez; Stacy Sanchez Discharge Orders/Prescriptions Prescriptions: New levetiracetam [Keppra] 500 mg tablet 500 mg PO BID Qty: 60 0RF Continued bupropion HCl 300 mg tablet extended release 24 hr 300 mg PO DAILY Patient Comments: TAKE 1 TABLET BY MOUTH EVERY MORNING FOR 30 DAYS docusate sodium 100 mg capsule 100 mg PO BID folic acid 1 mg tablet 1 mg PO DAILY hydroxyzine pamoate 25 mg capsule 25 mg PO Q4H PRN (Reason: anxiety) mirtazapine 15 mg tablet 15 mg PO QHS Vivitrol 380 mg suspension,extended rel recon 380 mg IM .COMPLEX Rx Instructions: 380 mg intramuscularly MONTHLY; polyethylene glycol 3350 17 gram/dose powder 17 g PO DAILY quetiapine 200 mg tablet extended release 24 hr 200 mg PO DAILY thiamine HCl (vitamin B1) 100 mg tablet 100 mg PO DAILY tizanidine 4 mg tablet 4 mg PO Q12H venlafaxine 37.5 mg capsule,extended release 24hr 37.5 mg PO DAILY Patient Comments: TAKE 1 CAPSULE BY MOUTH EVERY DAY clonidine HCl 0.1 mg tablet 0.1 mg PO DAILY Patient Comments: TAKE 1/2 A TABLET BY MOUTH THREE TIMES A DAY FOR 30 DAYS [facility] - Within 2 Weeks (You will need referred to a neurologist) Disposition Disposition (needs filled in before D/C Order can be placed): Home, Self Care
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
== END 2023-07-31 14:20 | disposition home or self-care (01) ==
LOC: ED 18:46 → PCU 19:54
PROVIDERS: Admitting Provider Internal Medicine; Emergency Provider Emergency Medicine; Visit Provider Internal Medicine
DX: G40.909 Epilepsy, unspecified, not intractable, without status epilepticus (principal); J44.9 Chronic obstructive pulmonary disease, unspecified; F10.20 Alcohol dependence, uncomplicated; F32.A Depression, unspecified; I10 Essential (primary) hypertension; F17.290 Nicotine dependence, other tobacco product, uncomplicated; F41.9 Anxiety disorder, unspecified; Z79.899 Other long term (current) drug therapy; Y90.0 Blood alcohol level of less than 20 mg/100 ml
CPT/HCPCS: 36415; 70450; 70551; 80053; 80307; 80320; 84443; 85025; 95819; 96374; 96375; 99221; 99285; A4216; G0378; G0480; J2405